=== PATIENT | male | born 1995 | race Caucasian/White ===

== ENCOUNTER 2017-03-05 01:03 | Observation (INO) | payer OTHER ==
[~2017-03-05] VITALS: Ht 180.3 cm; Wt 83.8 kg
[2017-03-05] MEDS ORDERED: BUPR150T3 PO (01:19)
[2017-03-05] MEDS ORDERED: CELE10TA PO (01:19)
[2017-03-05 01:40] LABS: MEAN CORPUSCULAR HEMOGLOBIN 32.2 pg (27.0-33.0); MEAN CORPUSCULAR HGB CONC 35.2 g/dl (32.0-36.5); MEAN CORPUSCULAR VOLUME 91.7 fl (80.0-96.0); WHITE BLOOD COUNT 5.9 K/mm3 (4.0-10.0)
[2017-03-05 01:56] LABS: METHADONE URINE NEGATIVE (NEGATIVE)
[2017-03-05 02:01] LABS: ALBUMIN/GLOBULIN RATIO 1.18 (1.00-1.93); ALKALINE PHOSPHATASE 86 U/L (45-117); ALT/SGPT 41 U/L (12-78); ANION GAP 7 MEQ/L (8-16); AST/SGOT 42 U/L (15-37); BILIRUBIN,DIRECT 0.2 MG/DL (0.0-0.2); BILIRUBIN,TOTAL 0.8 MG/DL (0.2-1.0); BLOOD UREA NITROGEN 15 MG/DL (7-18); CALCIUM LEVEL 8.8 MG/DL (8.5-10.1); CARBON DIOXIDE LEVEL 25 MEQ/L (21-32); CHLORIDE LEVEL 106 MEQ/L (98-107); CREATININE FOR GFR 0.94 MG/DL (0.70-1.30); GLUCOSE, FASTING 88 MG/DL (70-105); POTASSIUM SERUM 4.4 MEQ/L (3.5-5.1); SODIUM LEVEL 138 MEQ/L (136-145); TOTAL PROTEIN 7.4 GM/DL (6.4-8.2)
[2017-03-05] MEDS ORDERED: CHARCOAL ACTIVATED LIQUID 25 GM/120 ML BTL PO ONE (04:00)
[2017-03-05] MEDS ORDERED: NS 1,000 ML IV ONE (07:30)
--- NOTE | 2017-03-05 08:45 | HPEPDOC ---
Medical History and Physical Date of Admission 03/05/2017 History and Physical Primary care provider: Nikki Field on [place] Date of Admission: 03/05/2017 CHIEF COMPLAINT: Suicide attempt with overdose of Wellbutrin and citalopram HISTORY OF PRESENT ILLNESS: Mr. Cordero is a 21-year-old male who is brought to the emergency department last night. Apparently he drinks alcohol on a daily basis, despite the fact that he is under age. Last night he was "getting a little bit rowdy" and after he was informed by his peers that they were going to call his commander, he stated that he saw his career being flushed down the drain, therefore he decided to take all the pills he had which was 5 pills of Wellbutrin 150 mg, and 10 pills of citalopram 10 mg. Apparently at that time he did also have a knife, and indicated an intention to end his life. He has never had a suicide attempt in the past. He did not have any intention of harming anyone else. He was subsequently brought to the emergency department where he was given charcoal as well as 1 L bolus of saline. ALLERGIES: No known drug allergies PAST MEDICAL HISTORY: Anxiety and depression PAST SURGICAL HISTORY: None SOCIAL HISTORY: He smokes approximately 5 cigarettes a day, he states that he has been smoking for approximately one year. He states that he drinks on a daily basis, anywhere from a few beers up to a fifth. He denies any other recreational drug use. 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 Otherwise he denies any family history of stroke, cardiac disease, [place], diabetes REVIEW OF SYSTEMS: Constitutional: Patient denies fevers, chills, night sweats, recent weight gain/ loss. HEENT: Patient denies blurred or double vision, transient visual disturbances, postnasal drip, epistaxis, sore throat, difficulty chewing or swallowing food. He does have a headache Cardiovascular: Patient denies chest discomfort/pain, palpitations, exertional dyspnea, orthopnea, edema of the extremities, claudication. Respiratory: Patient denies dyspnea, wheezing, cough, hemoptysis, sputum production. Gastrointestinal: Patient denies nausea, vomiting, diarrhea, constipation, abdominal pain, melena, hematochezia, hematemesis, jaundice. PHYSICAL EXAMINATION: General: Awake, alert, oriented 3. He appears to be in no acute distress at this time HEENT: Head normocephalic atraumatic, pupils equally reactive to light and accommodation, conjunctiva are pink, sclera are nonicteric, but do appear slightly bloodshot, buccal mucosa is pink and moist with no lesions in the oropharynx. Hearing is grossly intact to conversation. He does have a few minor scratches on his neck, he does not know where they came from. Respiratory: Clear to auscultation bilaterally with no wheezes, rales, or rhonchi. Cardiovascular: Regular rate and rhythm, with no rubs, gallops, or murmur. Abdomen: Soft, nontender, nondistended, no hepatosplenomegaly appreciated. Bowel sounds present. Extremities: 2+ pulses in the radial and dorsalis pedis bilaterally. No evidence of clubbing or cyanosis. He does have a few minor scratches on his forearms, however these do not appear to be lacerations. ELECTROCARDIOGRAM: 2 EKGs were performed in the emergency department. They show sinus rhythm, normal rate, and a corrected QTC of 399 and 401 respectively. ASSESSMENT: 1. Intentional overdose of Wellbutrin and citalopram with suicidal ideations 2. Alcohol abuse and an underage drinking 3. History of anxiety and depression 4. Tobacco use 5. DVT prophylaxis PLAN: Will admit the patient to PCU for cardiac monitoring. Overdose of bupropion and Celexa is associated with seizures, hypertension, tachycardia, arrhythmias, . This was discussed with the patient, he is aware. We will monitor him for at least 24 hours, and once the alcohol is out of his system as well as these drugs, we will consult psychiatry to evaluate him for intentional suicide attempt. As he does use chronic alcohol, I will order a banana bag at this time. He will need a sitter at all times, and we will perform seizure precautions. My preceptor for this patient encounter was physically present in the building during the encounter and was fully available. As needed, all aspects of the patient interview, examination, medical decision making process, and medical care plan development were reviewed and approved by the preceptor. Preceptor is aware and concurs with the plan as stated in the body of this note and will attest to such by his/her cosignature. Vital Signs Vital Signs Date Time Temp Pulse Resp B/P Pulse Ox O2 Delivery O2 Flow Rate FiO2 03/05/17 05:31 98.1 20 03/05/17 05:24 124/69 03/05/17 05:09 68 95 03/05/17 01:11 Room Air Laboratory Data Labs 24H Laboratory Tests 2 03/05/17 01:14: Acetaminophen Level < 2.0L, Aspartate Amino Transf (AST/SGOT) 42H, Alanine Aminotransferase (ALT/SGPT) 41, Alkaline Phosphatase 86, Total Bilirubin 0.8, Direct Bilirubin 0.2, Albumin 4.0, Albumin/Globulin Ratio 1.18, Anion Gap 7L, Calcium Level 8.8, Ethyl Alcohol Level 0.159H, Salicylates Level < 1.7L, Thyroid Stimulating Hormone (TSH) 2.330, Total Protein 7.4 03/05/17 01:25: Urine Amphetamines Screen NEGATIVE, Urine Benzodiazepines Screen NEGATIVE, Urine Opiates Screen NEGATIVE, Urine Barbiturates Screen NEGATIVE, Urine Cannabinoids Screen NEGATIVE, Urine Cocaine Metabolite Screen NEGATIVE, Urine Methadone Screen NEGATIVE, Urine Phencyclidine Screen NEGATIVE CBC/BMP Laboratory Tests 03/05/17 01:14 Red Blood Count 4.95, Mean Corpuscular Volume 91.7, Mean Corpuscular Hemoglobin 32.2, Mean Corpuscular Hemoglobin Concent 35.2, Red Cell Distribution Width 12.0 Home Medications Scheduled Bupropion Hcl (Bupropion HCl Xl) 150 Mg Tab 150 MG PO DAILY Citalopram Hydrobromide (Celexa) 10 Mg Tab 10 MG PO DAILY Allergies Coded Allergies: No Known Allergies (Unverified , 03/05/17) TEJAS KELLER DO Mar 05, 2017 08:45 AR ARUAJO DO Mar 05, 2017 16:15
[2017-03-05] MEDS ORDERED: MULTIVITAMIN -ADULT INJECTION 10 ML, THIAMINE INJection 100 MG, FOLIC ACID 1 MG in NS 1... IV ONE (10:00)
[2017-03-05 23:21] VITALS: BP 133/69
[2017-03-06] VITALS: BP 129/69
[2017-03-06 04:45] VITALS: BP 134/80
[2017-03-06 07:33] LABS: ANION GAP 7 MEQ/L (8-16); BLOOD UREA NITROGEN 13 MG/DL (7-18); CALCIUM LEVEL 8.7 MG/DL (8.5-10.1); CARBON DIOXIDE LEVEL 27 MEQ/L (21-32); CHLORIDE LEVEL 106 MEQ/L (98-107); CREATININE FOR GFR 0.93 MG/DL (0.70-1.30); GLUCOSE, FASTING 90 MG/DL (70-105); POTASSIUM SERUM 4.4 MEQ/L (3.5-5.1); SODIUM LEVEL 140 MEQ/L (136-145)
[2017-03-06 08:00] VITALS: BP 147/73
--- NOTE | 2017-03-06 11:12 | DS.PDOC ---
Discharge Summary General Date of Admission Mar 05, 2017 at 08:11 Date of Discharge 03/06/2017 Discharge Summary PRIMARY CARE PHYSICIAN: Nikki Field on [place] ATTENDING AT TIME OF DISCHARGE: Dr. Araujo DISCHARGE DIAGNOS(E)S: 1. Intentional overdose of bupropion and SSRI citalopram with suicidal ideations 2. Alcohol abuse (underage) 3. Tobacco abuse 4. 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 Feeling as though he was flushing his career down the drain he decided to take all the pills he had which was 5 pills of Wellbutrin and 10 pills of citalopram. There is also some mention that he had a knife and was expressing suicidal ideations. He was subsequently brought to the emergency department. He has been on telemetry for over 24 hours with no events. No QT prolongation. He has not demonstrated any ill effects of SSRI overdose, and he does appear to be medically stable at this time. He was seen and evaluated by psychiatry who feels that he would benefit from inpatient psychiatric therapy, therefore he will be transferred to the [facility] at [facility]. PHYSICAL EXAMINATION ON DISCHARGE: GENERAL: Reclined in bed. He is awake, alert, oriented 3. He is in no acute distress CARDIOVASCULAR EXAMINATION: Regular rate and rhythm, with no rubs, gallops, or murmur. RESPIRATORY EXAMINATION: Clear to auscultation bilaterally with no wheezes, rales, or rhonchi. ABDOMINAL EXAMINATION: Soft, nontender, nondistended. Bowel sounds present. EXTREMITIES: No clubbing or edema noted. 2+ pulses in the radial bilaterally. DISPOSITION: To inpatient mental health unit (IM) at [facility] DISCHARGE INSTRUCTIONS: Follow-up with Dr. Pineda of psychiatry upon admission to [facility]. Diet as tolerated. Activity as tolerated. DISCHARGE MEDICATIONS: His only home medications were: Wellbutrin 150 mg daily citalopram 10 mg daily I will leave this to the discretion of the psychiatric physician at [facility] if they wish to continue this upon his admission to that unit. My preceptor for this patient encounter was physically present in the building during the encounter and was fully available. As needed, all aspects of the patient interview, examination, medical decision making process, and medical care plan development were reviewed and approved by the preceptor. Preceptor is aware and concurs with the plan as stated in the body of this note and will attest to such by his/her cosignature. Attending note: patient seen and evaluated independently. Discuss the treatment and hospital course with resident and I agree with the above treatment plan. Vital Signs/I&Os Vital Signs Date Time Temp Pulse Resp B/P Pulse Ox O2 Delivery O2 Flow Rate FiO2 03/06/17 08:00 98.7 64 16 147/73 97 Room Air Laboratory Data Labs 24H Laboratory Tests 2 03/06/17 06:52: Anion Gap 7L, Blood Urea Nitrogen 13, Creatinine 0.93, Sodium Level 140, Potassium Level 4.4, Chloride Level 106, Carbon Dioxide Level 27, Calcium Level 8.7, Ethyl Alcohol Level < 0.003 Discharge Medications No Active Prescriptions or Reported Meds Allergies Coded Allergies: No Known Allergies (Unverified , 03/05/17) TEJAS KELLER DO Mar 06, 2017 11:12 AR ARAUJO DO Mar 06, 2017 11:25
[2017-03-06 11:31] VITALS: BP 138/83
[2017-03-06] MEDS ORDERED: CELE10TA PO (13:00)
[2017-03-06] MEDS ORDERED: BUPR150T3 PO (13:00)
--- NOTE | 2017-03-06 13:47 | ECGEPIP ---
Stationary ECG Study [facility] Test Date: 2017-03-05 Pat Name: ANGELITA BHAGAT Department: Room: [place] [address] Gender: M Freelance Displayer: ofelia : 1995 Requested By: MATTHIAS WEINSTEIN Order Number: [id number] Reading MD: Javon Gutierrez Measurements Intervals [place] Rate: 64 P: 71 [place]: 169 QRS: 77 QRSD: 105 T: 64 QT: 384 QTc: 399 Interpretive Statements SINUS RHYTHM NONSPECIFIC T-WAVE ABNORMALITY No prior ECG available for comparison at the time of interpretation. Electronically Signed On 03-06-2017 13:46:57 EDT by Javon Gutierrez
--- NOTE | 2017-03-06 13:50 | ECGEPIP ---
Stationary ECG Study [facility] Test Date: 2017-03-06 Pat Name: ANGELITA BHAGAT Department: Room: [place] [address] Gender: M Referral Specialist: XIMENA : 1995 Requested By: MATTHIAS WEINSTEIN Order Number: [id number] Reading MD: Javon Gutierrez Measurements Intervals [place] Rate: 77 P: 73 [place]: 132 QRS: 75 QRSD: 104 T: 58 QT: 374 QTc: 425 Interpretive Statements SINUS RHYTHM Early repolarization. Electronically Signed On 03-06-2017 13:50:01 EDT by Javon Gutierrez
--- NOTE | 2017-03-06 21:33 | CR ---
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 He was caught in the [employer] drinking, and he is considered an underage drinker, and he is now concerned he has "flushed his career down the drain." Because of his concerns and his history of panicking when things go wrong, he overdosed on five Wellbutrin 150 mg and 10 citalopram 10 mg. ALLERGY HISTORY: Negative. PAST HISTORY: He has been treated at [facility] [place] for anxiety and depression. SURGICAL HISTORY: Negative. He comes from [place]. He has a high school education. He serves in the [employer]. 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 He states, "I knew I would get in trouble. 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 I'll be on Medicaid. I'll be making minimum wage. My family won't talk to me." NEUROLOGICAL HISTORY: Negative. DRUG HISTORY: Negative. Patient states he was drinking in the [employer] a bottle of wine as well as 40 ounces of beer, and he has done it many times before, too many to count. He has been drinking since the age of 18. LEGAL HISTORY: Positive for a past history of misdemeanor for vandalism. He is presently single. His family is on [place]. He has no history of sexual abuse. He states he has had panic attacks since age 17, and they occur when things do not go well. He says when he panics and assumes the worst. He cannot control himself. He thinks of worst-case scenarios. MENTAL STATUS: He is presently stating he is "sometimes paranoid." He denies hallucinations, delusions, obsessions, compulsions, and phobias. 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 He does not know the Celexa dose. IMPRESSION: 1. Major depressive illness. 2. Alcohol abuse. RECOMMENDATIONS: Transfer to mental health unit.
--- NOTE | 2017-03-07 08:44 | ECGEPIP ---
Stationary ECG Study [facility] - ED Test Date: 2017-03-05 Pat Name: ANGELITA BHAGAT Department: Room: - Gender: M Trim Technician: : 1995 Requested By: IKER LEDEZMA Order Number: [id number] Reading MD: Kyrie Millan Measurements Intervals [place] Rate: 75 P: 70 [place]: 165 QRS: 71 QRSD: 110 T: 45 QT: 373 QTc: 418 Interpretive Statements SIN[address] RHYTHM ST ELEVATION, PROBABLY EARLY REPOLARIZATION NO PRIOR Electronically Signed On 03-07-2017 8:44:03 EDT by Kyrie Millan
--- NOTE | 2017-03-07 08:45 | ECGEPIP ---
Stationary ECG Study [facility] - ED Test Date: 2017-03-05 Pat Name: ANGELITA BHAGAT Department: Room: - Gender: M Brushing Operator: : 1995 Requested By: IKER LEDEZMA Order Number: [id number] Reading MD: Kyrie Millan Measurements Intervals [place] Rate: 77 P: 67 [place]: 158 QRS: 71 QRSD: 108 T: 55 QT: 368 QTc: 416 Interpretive Statements SINUS RHYTHM DIFFUSE ST ELEVATION ,PROBABLY EARLY REPOLARIZAITON 03/05/17 1:20 RATE INCREASED SIMILAR MORPHOLOGY Electronically Signed On 03-07-2017 8:45:16 EDT by Kyrie Millan
== END 2017-03-06 12:14 ==
LOC: EDBD 01:03 → M ED 02:45 → M ED INP 08:11
PROVIDERS: ADMIT Hospitalist; ATTEND Hospitalist
DX: T50.902A Poisoning by unspecified drugs, medicaments and biological substances, intentional self-harm, initial encounter (principal); T43.012A Poisoning by tricyclic antidepressants, intentional self-harm, initial encounter; F10.10 Alcohol abuse, uncomplicated; F17.210 Nicotine dependence, cigarettes, uncomplicated; F41.9 Anxiety disorder, unspecified; F32.9 Major depressive disorder, single episode, unspecified; Z79.899 Other long term (current) drug therapy
CPT/HCPCS: 36415; 80048; 80076; 80306; 84443; 85027; 93005; 93041; 99285; G0480; J3411

== ENCOUNTER 2017-03-06 12:15 | Inpatient (IN) | payer OTHER ==
[~2017-03-06] VITALS: Ht 180.3 cm; Wt 83.3 kg
[~2017-03-06 12:15] MED LIST: BUPR150T3 PO; CELE10TA PO
[2017-03-06] MEDS ORDERED: BUPR150T3 PO (13:00)
[2017-03-06] MEDS ORDERED: CELE10TA PO (13:00)
[2017-03-06 13:01] VITALS: BP 144/82
[2017-03-06] MEDS ORDERED: MOM 30ML SUSPENSION UDC PO PRN (14:15)
[2017-03-06] MEDS ORDERED: ACETAMINOPHEN TAB 650MG DOSE (2X325MG) PO PRN (14:15)
[2017-03-06] MEDS ORDERED: MAALOX 30 ML SUSP *UDC PO PRN (14:15)
[2017-03-07 07:00] VITALS: BP 130/77
[2017-03-07] MEDS: buPROPion **XL** TABLET 150MG (WELLBUTRIN XL) PO SCH (09:23)
[2017-03-07] MEDS: CitaloPRAM (CeleXA) 20 MG TAB PO SCH (09:23)
[2017-03-07 18:00] VITALS: BP 131/70
--- NOTE | 2017-03-08 06:34 | HPE ---
DATE OF ADMISSION: 03/07/2017 Mr. Cordero is a 21-year-old male according to the emergency room and progressive care unit (PCU) note. 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 There was some mention that he had a knife and was expressing suicidal ideation. He was brought to the emergency department. He was on telemetry for 24 hours with no events, no QT prolongation and has not demonstrated any ill affects of selective serotonin reuptake inhibitor (SSRI) overdose. He appears to be medically stable at the time and was evaluated as to the benefits for inpatient psychiatric treatment. This 21-year-old male drinks alcohol daily. He was caught in the [employer] drinking and was concerned about his career being flushed down the toilet. He overdosed on Wellbutrin and citalopram. ALLERGIES: He has no history of allergies. PAST HISTORY: Past psychiatric issues are that he has been diagnosed with anxiety and depression. PAST SURGICAL HISTORY: Negative. The patient is from [place]. He has a high school education. He has been serving in the [employer] and says "he is indifferent to the [employer]." He states he knew he would get in trouble, he knew he would get kicked out of the [employer], he is panicked that he will not get a job, will be doing minimum wage and that his family will not talk to him. For that reason he swallowed his pills and wanted to . NEUROLOGIC HISTORY: Negative. DRUG HISTORY: Negative. The patient states he was drinking a bottle of [place], and also drinks 40 ounces of beer. Since he is an underage drinker, he is not allowed to drink in the [place]. He states he has drank in the [place] so many times that it is too many to count. He has been drinking since age 18. His legal history is positive for a misdemeanor in the past of vandalism. He has no history of sexual or emotional abuse. His family lives in [place]. He states he has had panic attacks since he was age 17. He describes that when he gets in trouble he "assumes the worse, cannot control his thoughts, thinks of worse case scenarios." MENTAL STATUS EXAMINATION: He is presently denying hallucinations, delusions, obsessions, compulsions, and phobias although he says he is 'sometimes paranoid." He has been treated, his psychiatric treatment has been at behavioral health. He has been treated with antidepressants of Wellbutrin and Celexa. DIAGNOSES: 1. Major depressive illness. 2. Panic attacks. 3. Alcohol dependence. PLAN: Observation, further information and recommendation for alcohol rehabilitation.
[2017-03-08 06:43] VITALS: BP 128/64
[2017-03-08] MEDS: buPROPion **XL** TABLET 150MG (WELLBUTRIN XL) PO SCH (09:14)
[2017-03-08] MEDS: CitaloPRAM (CeleXA) 20 MG TAB PO SCH (09:14)
--- NOTE | 2017-03-08 11:04 | IPNPDOC ---
[facility] Progress Note Progress Note DATE OF SERVICE: 03/08/17 HISTORY: Day 3 of admission. Pt admitted after drinking in his barracks at [facility] and creating a disturbance. He was told he would be reported and he took an overdose of his SSRI medication, wellbutrin and Celexa. He was observed in the ED. EKG done. Pt did not show any QT prolongation and he was admitted to [facility]. He was interviewed by commercial underwriter in his room. VITAL SIGNS: See below. NEW TEST RESULTS: na CURRENT MEDICATIONS: See below. 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. He is underage and drinking in his barracks. He gets intoxicated daily. Speech: Is coherent, fluent Language skills are good Thought processes includes: goal directed, logical Thought content: appropropriate, Abstract reasoning, and computation: good Description of associations: good. Description of abnormal or psychotic thoughts: denies SI, denies perceptual disturbance, no obsessions or compulsions, no delusions or FLETCHER. Judgment: poor when it comes to drinking Insight: good, indicates an awareness and desire to stop abusing alcohol. Orientation: well oriented in all spheres. Recent and remote memory: intact Attention span and concentration: adequate, h/o ADHD tx in school for many years. Fund of knowledge: good Mood: "okay" Affect: congruent DIAGNOSES: 1. Generalized anxiety disorder 2. Alcohol dependence 3. depressive disorder 4. ADHD by history ASSESSMENT:Pt denies parents use or abuse alcohol. 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 He drinks about 7 drinks a day. 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 He has never overdosed on his medication before. He is prescribed wellbutrin and citalopram by the [email or web address] [place] He does not feel the medication have done all that much for him. He admits to having anxiety and worrying " about everything". This has been true for him for the past 2 years or so. He has never received education in stress mgt or stress reduction. He denies any specific triggers and uses alcohol for calming. He says a friend has signed him up for [facility] [place] and adds, "I probably need it". Pt is motivated and willing to get help with his drinking. As an outpatient it is recommended he be weaned off the antidepressants since he does not report any benefit. CBT/relaxation, meditation and other skills for reducing anxiety should be paramount in his treatment. He may benefit from prn vistaril and campral once he leaves the unit. MANAGEMENT PLAN: continue to observe. obtain collateral from family and base . TIME SPENT: 45 minutes. Vital Signs Vital Signs Date Time Temp Pulse Resp B/P Pulse Ox O2 Delivery O2 Flow Rate FiO2 03/08/17 06:43 97.7 63 14 128/64 03/06/17 13:01 96 Room Air Current Medications Current Medications Acetaminophen (Tylenol Tab) 650 mg Q6HP PRN PO HEADACHE or DISCOMFORT; Start at 14:15; Stop 04/05/17 at 14:14 Al Hydrox/Mg Hydrox/Simethicone (Mylanta) 30 ml Q4HP PRN PO HEARTBURN/ INDIGESTION; Start 03/06/17 at 14:15; Stop 04/05/17 at 14:14 Bupropion HCl (Wellbutrin Xl) 150 mg DAILY PO Last administered on 03/08/17 09 :14; Start 03/07/17 at 09:00; Stop 04/06/17 at 08:59 Citalopram Hydrobromide (CeleXA) 20 mg DAILY PO Last administered on 03/08/17 09:14; Start 03/07/17 at 09:00; Stop 04/06/17 at 08:59 Magnesium Hydroxide (Milk Of Magnesia) 30 ml DAILYPRN PRN PO CONSTIPATION; Start 03/06/17 at 14:15; Stop 04/05/17 at 14:14 Trazodone HCl (Desyrel) 50 mg QHSP PRN PO INSOMNIA; Start 03/06/17 at 14:15; Stop 04/05/17 at 14:14 Allergies Coded Allergies: No Known Allergies (Unverified , 03/05/17) Jane Hazel Mar 08, 2017 11:03
[2017-03-08 18:00] VITALS: BP 142/80
[2017-03-09 06:32] VITALS: BP 156/93
--- NOTE | 2017-03-09 07:52 | HPE ---
DATE OF ADMISSION: 03/07/2017 HISTORY OF PRESENT ILLNESS: Please refer to the psychiatric history and evaluation for further details on this admission. This examination and history is intended for medical issues which may need treatment, followup or consultation on this 21-year-old male who was transferred from the progressive care unit (PCU) after having been treated and stabilized, having taken an overdose of Wellbutrin and Celexa. PRIMARY CARE PROVIDER: Jordan Emir [place] ALLERGIES: No known allergies. PAST MEDICAL HISTORY: Anxiety and depression. PAST SURGICAL HISTORY: None. HOME MEDICATIONS: None. SOCIAL HISTORY: He smokes about five cigarettes per day. He drinks on a daily basis, anywhere from a few beers to a fifth. He denies any recreational drug use. 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 REVIEW OF SYSTEMS: Unremarkable, negative. He had no complaints. Ten systems review was unremarkable. Two EKGs were performed in the emergency department. They showed sinus rhythm, normal rate. PHYSICAL EXAMINATION: A 21-year-old cooperative male in no acute distress. Blood pressure 131/70, pulse 62, respirations 16, temperature 98.7. The patient is alert and oriented times three. Pupils are equal and reactive to light. Extraocular movements intact. Cornea and sclera clear. Conjunctiva is normal. No facial asymmetry. Pharynx, tongue and gums pink and moist. Tongue is midline. Neck is supple, without lymphadenopathy. No thyromegaly. No goiter. Chest clear to auscultation, without wheeze or retraction. Heart is regular. Abdomen benign. Bowel sounds positive. Genitourinary ()/Rectal: Not done. Extremities show equal strength. Full range of motion. No cyanosis, clubbing or edema. Peripheral pulses equal and palpable bilaterally. Skin is warm and dry. IMPRESSION AND PLAN: 1. Psychiatric, plan per psychiatry. 2. Monitor for alcohol withdrawal. 3. No acute medical issues.
[2017-03-09] MEDS: CitaloPRAM (CeleXA) 20 MG TAB PO SCH (09:13)
[2017-03-09] MEDS: buPROPion **XL** TABLET 150MG (WELLBUTRIN XL) PO SCH (09:14)
--- NOTE | 2017-03-09 15:07 | IPNPDOC ---
[facility] Progress Note Progress Note DATE OF SERVICE: 03/09/17 HISTORY: day 4 of admission. Pt shows no sign of alcohol withdrawal. Denies tremors, no diaphoresis, VS stable. VITAL SIGNS: See below. NEW TEST RESULTS: seen by PA today. CURRENT MEDICATIONS: See below. MENTAL STATUS EXAMINATION: Patient is a 21-year old male, who is being treated for MAGO, alcohol dependence , depressive disorder and ADHD by history. Speech: Is fluent, spontaneous. Language skills are grossly intact Thought processes: linear, logical and goal directed. Thought content: future oriented Abstract reasoning, and computation:good. Description of associations: good. Description of abnormal or psychotic thoughts: not psychotic or manic. Not suicidal. Judgment: fair Insight: good, Orientation: oriented in all spheres. Recent and remote memory: intact Attention span and concentration: adequate Fund of knowledge: full Mood:sad. Affect: congruent DIAGNOSES: 1. Generalized anxiety disorder 2. depressive disorder 3. alcohol dependence 4. ADHD by history ASSESSMENT: Pt is participating in therapeutic programming and making the most of his time here. He is motivated to eliminate alcohol from his life. He is willing to meet with his commanding officers and find out what consequences there will be due [place] Pt is aware that we are attempting to schedule a meeting with command. Pt feels prepared to face what lies ahead. He feels supported by friends. Pt reports improving mood. Denies desire to takes his own life. Would like to remain in the . MANAGEMENT PLAN: Pt may benefit from prn anxiolytic therapy as an outpatient. A non controlled substance such as hydroxyzine is recommended. He also needs to learn stress reduction techniques to improve his coping with various life stressors. Abstinence from alcohol is strongly recommended. TIME SPENT: 30 minutes. Vital Signs Vital Signs Date Time Temp Pulse Resp B/P Pulse Ox O2 Delivery O2 Flow Rate FiO2 03/09/17 06:32 98.5 62 16 156/93 03/06/17 13:01 96 Room Air Current Medications Current Medications Acetaminophen (Tylenol Tab) 650 mg Q6HP PRN PO HEADACHE or DISCOMFORT; Start at 14:15; Stop 04/05/17 at 14:14 Al Hydrox/Mg Hydrox/Simethicone (Mylanta) 30 ml Q4HP PRN PO HEARTBURN/ INDIGESTION; Start 03/06/17 at 14:15; Stop 04/05/17 at 14:14 Bupropion HCl (Wellbutrin Xl) 150 mg DAILY PO Last administered on 03/09/17 09 :14; Start 03/07/17 at 09:00; Stop 04/06/17 at 08:59 Citalopram Hydrobromide (CeleXA) 20 mg DAILY PO Last administered on 03/09/17 09:13; Start 03/07/17 at 09:00; Stop 04/06/17 at 08:59 Magnesium Hydroxide (Milk Of Magnesia) 30 ml DAILYPRN PRN PO CONSTIPATION; Start 03/06/17 at 14:15; Stop 04/05/17 at 14:14 Trazodone HCl (Desyrel) 50 mg QHSP PRN PO INSOMNIA; Start 03/06/17 at 14:15; Stop 04/05/17 at 14:14 Allergies Coded Allergies: No Known Allergies (Unverified , 03/05/17) Jane Hazel Mar 09, 2017 15:07
[2017-03-09 18:00] VITALS: BP 130/86
[2017-03-09] MEDS: traZODone 50 MG TAB PO PRN (20:23)
[2017-03-10 06:17] VITALS: BP 112/72
[2017-03-10] MEDS: CitaloPRAM (CeleXA) 20 MG TAB PO SCH (08:56)
[2017-03-10] MEDS: buPROPion **XL** TABLET 150MG (WELLBUTRIN XL) PO SCH (08:56)
[2017-03-10] MEDS ORDERED: hydrOXYzine 50 MG TAB PO STA (12:10)
[2017-03-10] MEDS ORDERED: hydrOXYzine 25 MG TAB PO PRN (12:15)
--- NOTE | 2017-03-10 12:40 | IPNPDOC ---
[facility] Progress Note Progress Note DATE OF SERVICE: 03/10/17 HISTORY: Day 5 of admission. Meeting with TARYN. VITAL SIGNS: See below. NEW TEST RESULTS: na CURRENT MEDICATIONS: See below. MENTAL STATUS EXAMINATION: Patient is a 21-year old male, who is dx with MDD and alcohol dependence. Speech: Is clear, spontaneous Language skills are grossly intact Thought processes including: goal directed Thought content: upset with recommendation by his 1st Sgt, not to retain him in the [employer], seeking options. Abstract reasoning, and computation: good. Description of associations: good. Description of abnormal or psychotic thoughts: pt agitated that meeting with TARYN did not go the way he wanted it to but he is not having any psychotic symptoms or suicidal thoughts. Judgment:fair Insight: fair. Orientation: oriented in all spheres. Recent and remote memory: intact. Attention span and concentration: poor, preoccupied Fund of knowledge: good Mood: "agitated". Affect: upset DIAGNOSES: 1. MDD 2. Alcohol dependence 3. ADHD by history ASSESSMENT:Pt believes that most things he attempts to accomplish in life have poor outcomes. He was kicked out of High School. He did not apply himself at college. He is facing disciplinary action and possible expulsion from the [employer]. He wants to explore options. He is in control of his actions. He would benefit from positive input from others and needs encouragement to persevere. He feels like giving up right now. He denies suicidal or homicidal thoughts. After the meeting with [facility] personnel, Mr. Cordero called and talked to his mother. He expressed to her "I don't know if I can go on". MANAGEMENT PLAN: Pt was offered and accepted Vistaril 50 mg po stat for calming. PRN vistaril is ordered for him q 6 hours if necessary. Pt stated he does seem to feel anger more intensely since being on wellbutrin. Wellbutrin discontinued. Celexa raised to 40 mg starting tomorrow. Pt was enc to contact his best friend in [place] to talk about what happened. Also was encouraged to contact his family. Nursing staff made aware that pt made the comment "no one better touch me" and will assess his response to the vistaril. When last observed on the unit, pt was in bed resting with eyes closed. He appeared to be sleeping. The Liaison from [employer] also visited with Mr. Cordero on the unit to encourage him. TIME SPENT: 60 minutes. Vital Signs Vital Signs Date Time Temp Pulse Resp B/P Pulse Ox O2 Delivery O2 Flow Rate FiO2 03/10/17 06:17 97.5 66 20 112/72 03/06/17 13:01 96 Room Air Current Medications Current Medications Acetaminophen (Tylenol Tab) 650 mg Q6HP PRN PO HEADACHE or DISCOMFORT; Start at 14:15; Stop 04/05/17 at 14:14 Al Hydrox/Mg Hydrox/Simethicone (Mylanta) 30 ml Q4HP PRN PO HEARTBURN/ INDIGESTION; Start 03/06/17 at 14:15; Stop 04/05/17 at 14:14 Bupropion HCl (Wellbutrin Xl) 150 mg DAILY PO Last administered on 03/10/17 08 :56; Start 03/07/17 at 09:00; Stop 03/10/17 at 12:11; Status DC Citalopram Hydrobromide (CeleXA) 20 mg DAILY PO Last administered on 03/10/17 08:56; Start 03/07/17 at 09:00; Stop 03/10/17 at 12:11; Status DC Citalopram Hydrobromide (CeleXA) 40 mg DAILY PO ; Start 03/11/17 at 09:00; Stop 04/10/17 at 08:59 Hydroxyzine HCl (Atarax) 25 mg Q6HP PRN PO ANXIETY; Start 03/10/17 at 12:15; Stop 04/09/17 at 12:14 Hydroxyzine HCl (Atarax) 50 mg Q6HP PRN PO ANXIETY; Start 03/10/17 at 12:15; Stop 04/09/17 at 12:14 Magnesium Hydroxide (Milk Of Magnesia) 30 ml DAILYPRN PRN PO CONSTIPATION; Start 03/06/17 at 14:15; Stop 04/05/17 at 14:14 Trazodone HCl (Desyrel) 50 mg QHSP PRN PO INSOMNIA Last administered on 20:23; Start 03/06/17 at 14:15; Stop 04/05/17 at 14:14 Allergies Coded Allergies: No Known Allergies (Unverified , 03/05/17) Jane Hazel Mar 10, 2017 12:40
[2017-03-10 18:00] VITALS: BP 119/56
[2017-03-10] MEDS: traZODone 50 MG TAB PO PRN (21:40)
[2017-03-11 06:25] VITALS: BP 118/66
[2017-03-11] MEDS: CitaloPRAM (CeleXA) 20 MG TAB PO SCH (08:20)
[2017-03-11] MEDS: hydrOXYzine 50 MG TAB PO PRN (08:21)
--- NOTE | 2017-03-11 11:26 | IPNPDOC ---
[facility] Progress Note Progress Note DATE OF SERVICE: 03/11/17 HISTORY: Day 6 of admission VITAL SIGNS: See below. NEW TEST RESULTS: na CURRENT MEDICATIONS: See below. MENTAL STATUS EXAMINATION: Patient is a 21-year old male, who is dx with major depression and MAGO. Pt has been in his room much of the morning but will attend groups now. Pt is wearing hospital clothing and interviewed in his room. No roommate present. Speech: Is clear, fluent, spontaneous Language skills are intact Thought processes : linear, goal directed. Thought content: "I don't know". Pt is worried about his future. Abstract reasoning, and computation: good. Description of associations: good Description of abnormal or psychotic thoughts: Denies active thoughts of suicide or homicide. Denies aud/vis hallucinations. No delusions or obsessions noted. Judgment: fair Insight: fair. Orientation: oriented in all spheres. Recent and remote memory: intact Attention span and concentration: short/distracted Fund of knowledge: full Mood: depressed. Affect: congruent. DIAGNOSES: 1. MDD 2. MAGO 3. Alcohol dependence. ASSESSMENT:Pt did not experience any symptoms of alcohol withdrawal while on the unit. He has been pleasant and sociable. He is upset with the decision by his immediate supervisors on the [place] to recommend he be expelled/dishonorably discharged from the service. He is dwelling on this. He minimizes the encouragement offered by the [employer] liaison and this blog writer thinking this is the end of his career. He states the vistaril makes him tired but he did not want the dose decreased. He said he slept well last night with the medication. MANAGEMENT PLAN: Francisco needs ongoing treatment as he reportedly told his mother yesterday after the meeting with [facility] that he did not know if he could go on. His celexa was increased thi sweek and this will take time to take effect. 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 TIME SPENT: 35 minutes. Vital Signs Vital Signs Date Time Temp Pulse Resp B/P Pulse Ox O2 Delivery O2 Flow Rate FiO2 03/11/17 06:25 98.5 64 18 118/66 03/06/17 13:01 96 Room Air Current Medications Current Medications Acetaminophen (Tylenol Tab) 650 mg Q6HP PRN PO HEADACHE or DISCOMFORT; Start at 14:15; Stop 04/05/17 at 14:14 Al Hydrox/Mg Hydrox/Simethicone (Mylanta) 30 ml Q4HP PRN PO HEARTBURN/ INDIGESTION; Start 03/06/17 at 14:15; Stop 04/05/17 at 14:14 Bupropion HCl (Wellbutrin Xl) 150 mg DAILY PO Last administered on 03/10/17 08 :56; Start 03/07/17 at 09:00; Stop 03/10/17 at 12:11; Status DC Citalopram Hydrobromide (CeleXA) 20 mg DAILY PO Last administered on 03/10/17 08:56; Start 03/07/17 at 09:00; Stop 03/10/17 at 12:11; Status DC Citalopram Hydrobromide (CeleXA) 40 mg DAILY PO Last administered on 03/11/17 08:20; Start 03/11/17 at 09:00; Stop 04/10/17 at 08:59 Hydroxyzine HCl (Atarax) 25 mg Q6HP PRN PO ANXIETY; Start 03/10/17 at 12:15; Stop 04/09/17 at 12:14; Status Cancel Hydroxyzine HCl (Atarax) 50 mg Q6HP PRN PO ANXIETY Last administered on 08:21; Start 03/10/17 at 12:15; Stop 04/09/17 at 12:14 Magnesium Hydroxide (Milk Of Magnesia) 30 ml DAILYPRN PRN PO CONSTIPATION; Start 03/06/17 at 14:15; Stop 04/05/17 at 14:14 Trazodone HCl (Desyrel) 50 mg QHSP PRN PO INSOMNIA Last administered on 21:40; Start 03/06/17 at 14:15; Stop 04/05/17 at 14:14 Allergies Coded Allergies: No Known Allergies (Unverified , 03/05/17) Jane Hazel Mar 11, 2017 11:26
[2017-03-11 18:00] VITALS: BP 132/71
[2017-03-11] MEDS: traZODone 50 MG TAB PO PRN (22:05)
[2017-03-12 06:00] VITALS: BP 132/78
[2017-03-12] MEDS: CitaloPRAM (CeleXA) 20 MG TAB PO SCH (08:34)
--- NOTE | 2017-03-12 10:43 | IPNPDOC ---
[facility] Progress Note Progress Note DATE OF SERVICE: 03/12/17 HISTORY: Day 7 of admission VITAL SIGNS: See below. NEW TEST RESULTS:NA. CURRENT MEDICATIONS: See below. MENTAL STATUS EXAMINATION: Patient is a 21-year old male, who is dx with MDD, severe and alcohol dependence. He continues to perseverate about his situation with the [employer]. He does not want to be discharged from service. Speech: Is fluent, spontaneous. Language skills are good, grossly intact Thought processes including: linear and goal directed. Thought content: future oriented. Abstract reasoning, and computation: average. Description of associations: good Description of abnormal or psychotic thoughts: continues to deny thoughts of suicide and perceptual disturbances. Judgment: fair. Insight: good Orientation: well oriented in all spheres. Recent and remote memory: grossly intact Attention span and concentration: adequate Fund of knowledge: full Mood:"sad and depressed.Anxious". Affect: congruent. DIAGNOSES: 1. MDD, severe, recurrent 2. alcohol dependent ASSESSMENT:Pt was more talkative today. He is thinking about what happened that got him into this current situation. He states he is determined to "stay strong and work hard" to prove he belongs in the . He is very interested in his work in the [employer]. He appears committed to abstaining from alcohol. 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 Pt was interrupted during the night by another patient's screaming. It caused him to feel anger but he controlled himself. Pt is tolerating the increase in celexa without side effects. He requested as increase in trazodone which was ordered for him. Side effects explained. Pt denies increasing anxiety. Anxiety remains moderate to high at times when agitated. Pt is using atarax prn. States it doesn't do much. MANAGEMENT PLAN: Increase trazodone to 100 mg at hs for middle of the night awakening. Continue Celexa. Pt was much more visible in milieu today. Interacting appropriately with peers and attending therapeutic groups. Observed smiling at times. We will discuss discharge Wednesday with the intent of discharge occurring sometime next week if he feels safe to leave. TIME SPENT: 35 minutes. Vital Signs Vital Signs Date Time Temp Pulse Resp B/P Pulse Ox O2 Delivery O2 Flow Rate FiO2 03/12/17 06:00 98.2 68 22 132/78 4/15/17 13:01 96 Room Air Current Medications Current Medications Acetaminophen (Tylenol Tab) 650 mg Q6HP PRN PO HEADACHE or DISCOMFORT; Start at 14:15; Stop 04/05/17 at 14:14 Al Hydrox/Mg Hydrox/Simethicone (Mylanta) 30 ml Q4HP PRN PO HEARTBURN/ INDIGESTION; Start 03/06/17 at 14:15; Stop 04/05/17 at 14:14 Bupropion HCl (Wellbutrin Xl) 150 mg DAILY PO Last administered on 03/10/17 08 :56; Start 03/07/17 at 09:00; Stop 03/10/17 at 12:11; Status DC Citalopram Hydrobromide (CeleXA) 20 mg DAILY PO Last administered on 03/10/17 08:56; Start 03/07/17 at 09:00; Stop 03/10/17 at 12:11; Status DC Citalopram Hydrobromide (CeleXA) 40 mg DAILY PO Last administered on 03/12/17 08:34; Start 03/11/17 at 09:00; Stop 04/10/17 at 08:59 Hydroxyzine HCl (Atarax) 25 mg Q6HP PRN PO ANXIETY; Start 03/10/17 at 12:15; Stop 04/09/17 at 12:14; Status Cancel Hydroxyzine HCl (Atarax) 50 mg Q6HP PRN PO ANXIETY Last administered on 08:21; Start 03/10/17 at 12:15; Stop 04/09/17 at 12:14 Magnesium Hydroxide (Milk Of Magnesia) 30 ml DAILYPRN PRN PO CONSTIPATION; Start 03/06/17 at 14:15; Stop 04/05/17 at 14:14 Trazodone HCl (Desyrel) 50 mg QHSP PRN PO INSOMNIA Last administered on 22:05; Start 03/06/17 at 14:15; Stop 04/05/17 at 14:14 Allergies Coded Allergies: No Known Allergies (Unverified , 03/05/17) Jane Hazel Mar 12, 2017 10:43
[2017-03-12] MEDS: hydrOXYzine 50 MG TAB PO PRN (14:34)
[2017-03-12 18:00] VITALS: BP 140/59
[2017-03-12] MEDS: traZODone 100 MG TAB PO PRN (23:14)
[2017-03-13 06:19] VITALS: BP 113/68
[2017-03-13] MEDS: CitaloPRAM (CeleXA) 20 MG TAB PO SCH (09:03)
[2017-03-13 18:00] VITALS: BP 120/88
[2017-03-13] MEDS: hydrOXYzine 50 MG TAB PO PRN (19:40)
[2017-03-13] MEDS: traZODone 100 MG TAB PO PRN (23:56)
[2017-03-14 06:58] VITALS: BP 126/84
[2017-03-14] MEDS: CitaloPRAM (CeleXA) 20 MG TAB PO SCH (08:54)
[2017-03-14 18:00] VITALS: BP 138/72
[2017-03-14] MEDS: traZODone 100 MG TAB PO PRN (23:08)
[2017-03-15 07:00] VITALS: BP 129/57
[2017-03-15] MEDS: CitaloPRAM (CeleXA) 20 MG TAB PO SCH (09:01)
--- NOTE | 2017-03-15 10:24 | IPNPDOC ---
[facility] Progress Note Progress Note DATE OF SERVICE: 03/15/17 HISTORY: Day 10 of admission VITAL SIGNS: See below. NEW TEST RESULTS: na CURRENT MEDICATIONS: See below. MENTAL STATUS EXAMINATION: Patient is a 21-year old male, who is an [employer] [place], admitted here after he deliberately overdosed on his medication of Celexa and wellbutrin after an argument with his command. He had been drinking in the [place] after being warned not to. Speech: Is spontaneous, clear, soft & low tone of voice, Language skills are grossly intact Thought processes : goal directed Thought content: appropriate Abstract reasoning, and computation: good . Description of associations: good. Description of abnormal or psychotic thoughts: Pt continues to deny suicidal thoughts and homicidal thoughts. He denies perceptual disturbances. Judgment: good Insight: good, pt accepts responsibility for his poor decision making. Orientation: well oriented in all spheres Recent and remote memory: intact Attention span and concentration: adequate Fund of knowledge: full Mood: depressed Affect: full range of affect. DIAGNOSES: 1. Major depressive disorder, severe, recurrent without psychotic features. 2. Alcohol dependence in remission 3. Insomnia. ASSESSMENT:Pt gave permission to notify command that he would like to leave on Wednesday this week. He is demonstrating a new spirit to fight any recommendation he be discharged from the . He plans to fight it. This is a positive sign his depression is lifting and he can engage in the activities he will need to be involved in for discharge to occur. He intends to remain sober. We discussed healthy coping patterns versus harming self when upset or disappointed. He plans to attend [facility] and to stop alcohol use. CBT and Motivational therapy are recommended as an outpatient. Insomnia remains an issue. He is prescribed a new sleep aid this evening and we will see if that is helpful for him. Mood is improving, range of affect observed today. Playful at times. Very sociable and visible in the milieu. MANAGEMENT PLAN: continue Celexa, change sleep aid to Rozerem (ramelteon). Discontinue trazodone. Monitor response. TIME SPENT: 30 minutes. Vital Signs Vital Signs Date Time Temp Pulse Resp B/P Pulse Ox O2 Delivery O2 Flow Rate FiO2 03/15/17 07:00 98.1 65 16 129/57 97 Room Air Current Medications Current Medications Acetaminophen (Tylenol Tab) 650 mg Q6HP PRN PO HEADACHE or DISCOMFORT; Start at 14:15; Stop 04/05/17 at 14:14 Al Hydrox/Mg Hydrox/Simethicone (Mylanta) 30 ml Q4HP PRN PO HEARTBURN/ INDIGESTION; Start 03/06/17 at 14:15; Stop 04/05/17 at 14:14 Bupropion HCl (Wellbutrin Xl) 150 mg DAILY PO Last administered on 03/10/17 08 :56; Start 03/07/17 at 09:00; Stop 03/10/17 at 12:11; Status DC Citalopram Hydrobromide (CeleXA) 20 mg DAILY PO Last administered on 03/10/17 08:56; Start 03/07/17 at 09:00; Stop 03/10/17 at 12:11; Status DC Citalopram Hydrobromide (CeleXA) 40 mg DAILY PO Last administered on 03/15/17 09:01; Start 03/11/17 at 09:00; Stop 04/10/17 at 08:59 Hydroxyzine HCl (Atarax) 25 mg Q6HP PRN PO ANXIETY; Start 03/10/17 at 12:15; Stop 04/09/17 at 12:14; Status Cancel Hydroxyzine HCl (Atarax) 50 mg Q6HP PRN PO ANXIETY Last administered on 19:40; Start 03/10/17 at 12:15; Stop 04/09/17 at 12:14 Magnesium Hydroxide (Milk Of Magnesia) 30 ml DAILYPRN PRN PO CONSTIPATION; Start 03/06/17 at 14:15; Stop 04/05/17 at 14:14 Trazodone HCl (Desyrel) 50 mg QHSP PRN PO INSOMNIA Last administered on 22:05; Start 03/06/17 at 14:15; Stop 03/12/17 at 10:33; Status DC Trazodone HCl (Desyrel) 100 mg QHSP PRN PO INSOMNIA Last administered on 23:08; Start 03/12/17 at 10:45; Stop 04/11/17 at 10:44 Allergies Coded Allergies: No Known Allergies (Unverified , 03/05/17) Jane Hazel Mar 15, 2017 10:24
[2017-03-15 18:00] VITALS: BP 126/58
[2017-03-15] MEDS: RAMELTEON 8 MG TAB (ROZEREM) PO SCH (21:23)
[2017-03-15] MEDS: hydrOXYzine 50 MG TAB PO PRN (21:24)
[2017-03-16 06:34] VITALS: BP 121/57
[2017-03-16] MEDS: CitaloPRAM (CeleXA) 20 MG TAB PO SCH (08:48)
[2017-03-16] MEDS: hydrOXYzine 50 MG TAB PO PRN (11:28)
--- NOTE | 2017-03-16 14:27 | IPNPDOC ---
[facility] Progress Note Progress Note DATE OF SERVICE: 03/16/17 HISTORY: Day 11 of admission. Expressed suicidal thinking as he participated in an activity group that had the participants write about their worries. VITAL SIGNS: See below. NEW TEST RESULTS: NA CURRENT MEDICATIONS: See below. MENTAL STATUS EXAMINATION: Patient is a 21-year old male, who is tx fpr MDD and alcohol dependence.. Speech: Is spontaneous Language skills are intact Thought processes: goal directed, logical Thought content: worried about the possibility of being discharge from the [employer] due to his recent infractions. Abstract reasoning, and computation: adequate. Description of associations: good. Description of abnormal or psychotic thoughts: Pt states he worries about suicide once he leaves the safety of this unit. Pt denies suicidal plan on the unit or when he leaves and returns to [facility]. Judgment: fair Insight: fair. Orientation: oriented to person, place, time and situation. Recent and remote memory: intact Attention span and concentration: good. Fund of knowledge: Full Mood: depressed. Affect: angry/tired. DIAGNOSES: 1. MDD, severe 2. Alcohol dependence 3. Insomnia. ASSESSMENT:Pt was about to fall off to sleep last night when he was disturbed by a peer which then kept him awake a bit more than he laquita have liked. The new sleep medication appears to have been a little helpful per Francisco. Will continue to monitor this. Pt feels the increase in Celexa has been helpful. He is a little less anxious per his self-report. The counselor who ran a group this morning voiced concern about pt's project during an activity about worries. On his paper he wrote about getting kicked out of the service and wanting to commit suicide. He denies plan or intent while on the unit. His main concern is what will happen to him when he leaves the confines of the hospital. Pt has lost the fighting spirit he displayed yesterday. MANAGEMENT PLAN: Discussed IOP with pt and alcohol cessation. Discussed continuing medications and keep appts after discharge. Discussed CBT/talk therapy upon discharge. Continue medications, observe for sleep time. Monitor SI and keep pt on close observation. Pt has his command meeting tomorrow. Pt states it is still his intention to fight his discharge. TIME SPENT: 30 minutes. Vital Signs Vital Signs Date Time Temp Pulse Resp B/P Pulse Ox O2 Delivery O2 Flow Rate FiO2 03/16/17 06:34 97.3 65 16 121/57 03/15/17 07:00 97 Room Air Current Medications Current Medications Acetaminophen (Tylenol Tab) 650 mg Q6HP PRN PO HEADACHE or DISCOMFORT; Start at 14:15; Stop 04/05/17 at 14:14 Al Hydrox/Mg Hydrox/Simethicone (Mylanta) 30 ml Q4HP PRN PO HEARTBURN/ INDIGESTION; Start 03/06/17 at 14:15; Stop 04/05/17 at 14:14 Bupropion HCl (Wellbutrin Xl) 150 mg DAILY PO Last administered on 03/10/17 08 :56; Start 03/07/17 at 09:00; Stop 03/10/17 at 12:11; Status DC Citalopram Hydrobromide (CeleXA) 20 mg DAILY PO Last administered on 03/10/17 08:56; Start 03/07/17 at 09:00; Stop 03/10/17 at 12:11; Status DC Citalopram Hydrobromide (CeleXA) 40 mg DAILY PO Last administered on 03/16/17 08:48; Start 03/11/17 at 09:00; Stop 04/10/17 at 08:59 Hydroxyzine HCl (Atarax) 25 mg Q6HP PRN PO ANXIETY; Start 03/10/17 at 12:15; Stop 04/09/17 at 12:14; Status Cancel Hydroxyzine HCl (Atarax) 50 mg Q6HP PRN PO ANXIETY Last administered on 11:28; Start 03/10/17 at 12:15; Stop 04/09/17 at 12:14 Magnesium Hydroxide (Milk Of Magnesia) 30 ml DAILYPRN PRN PO CONSTIPATION; Start 03/06/17 at 14:15; Stop 04/05/17 at 14:14 Ramelteon (Rozerem) 8 mg QHS PO Last administered on 03/15/17 21:23; Start at 21:00; Stop 04/14/17 at 20:59 Trazodone HCl (Desyrel) 50 mg QHSP PRN PO INSOMNIA Last administered on 22:05; Start 03/06/17 at 14:15; Stop 03/12/17 at 10:33; Status DC Trazodone HCl (Desyrel) 100 mg QHSP PRN PO INSOMNIA Last administered on t 23:08; Start 03/12/17 at 10:45; Stop 03/15/17 at 10:13; Status DC Allergies Coded Allergies: No Known Allergies (Unverified , 03/05/17) Jane Hazel Mar 16, 2017 14:27
[2017-03-16 18:00] VITALS: BP 150/78
[2017-03-16] MEDS: RAMELTEON 8 MG TAB (ROZEREM) PO SCH (21:58)
[2017-03-17 06:37] VITALS: BP 138/72
[2017-03-17] MEDS: CitaloPRAM (CeleXA) 20 MG TAB PO SCH (08:37)
[2017-03-17] MEDS: hydrOXYzine 50 MG TAB PO PRN (13:18)
[2017-03-17] MEDS ORDERED: ROZE8TAB9 PO ×3 (13:25→14:15)
[2017-03-17] MEDS ORDERED: HYDRO50TAB PO (13:26)
[2017-03-17] MEDS ORDERED: CELE20TA PO (13:26)
[2017-03-17] MEDS ORDERED: QUET1TAB8 PO (13:28)
--- NOTE | 2017-03-17 14:21 | DS.PDOC ---
[facility] Discharge Summary Discharge Summary DATE OF ADMISSION: Mar 06, 2017 at 12:15 DATE OF DISCHARGE: Mar 17, 2017 DISCHARGE DIAGNOSES: 1. Major depressive disorder, severe recurrent without psychotic features. 2. Generalized Anxiety Disorder 3. Alcohol dependence REASON FOR ADMISSION: pt was warned not to drink in the [place]. he was caught drinking, became upset and overdosed on his Celexa and Wellbutrin. pt remained in the hospital as he was told his Command was recommending a dishonorable discharge/Article 15. This depressed him further and he was again suicidal. CONSULTANTS INVOLVED: na TREATMENT AND PROGRESS ON THE UNIT : After several days patient was able to find the resilience to adopt a fighting spirit as he does not want his career to be over. He decided he would fight the recommendation and he would follow through on all treatment recommendations, including abstaining from alcohol and following up on outpatient mental health treatment for depression and anxiety. He is agreeable to alcohol treatment. He states it is his intention to comply with all the directives by Laurie Bernal. Pt was taken off of Wellbutrin as he expressed he felt more angry since he started that medication. That could very well be the case with Wellbutrin. His Celexa was increased from 20 mg to 40 mg to more effectively treat his depression and also anxiety. He responded well to prn doses of Vistaril when angry, upset or worried. Sleep/Insomnia became a problem later in the treatment course. Trazodone was increased to 100 mg but he still could not initiate sleep. Sometimes the noise on the unit interfered but other times is was not effective and he would lie awake all night. Rozerem was added and this too was ineffective for sleep. At discharge he was prescribed Seroquel 100 mg in addition to the Rozerem. HOSPITAL COURSE: Pt had periodic epidoses when he felt suicidal but he was able to process his feelings in therapeutic groups, with peers and with freelance writer. He was able to find some geremias prior to leaving and was observed doing some silly things with peer. He played the Hortorr and used the phone to keep in contact with family. DISCHARGE ASSESSMENT: Pt was stable and free of suicidal thoughts the day of discharge. He attended a meeting with his first Sgt. and expressed his intention to fight the recommendation for discharge. His medications-name, purposes, doses and need for weekly refills were explained to him. He stated he was ready to leave the hospital and face the consequences of his actions. MENTAL STATUS EXAMINATION ON DISCHARGE: Patient is a 21-year old male, who is under the care of freelance writer for MDD , MAGO and alcohol dependence. He is casually attired in civilian clothing. Hygiene is adequate. Eye contact is good. Speech is fluent, clear. Language skills are good. Thought processes: goal directed and logical Thought content: future oriented. Abstract reasoning, and computation: good. Description of associations:good Description of abnormal or psychotic thoughts: No suicidal or homicidal thinking. No psychotic symptoms. Judgment: good. Insight: fair Orientation to person, place, time and situation. Recent and remote memory: grossly intact. Attention span and concentration: good. Fund of knowledge: Full. Mood: euthymic Affect: congruent. MEDICATIONS ON DISCHARGE: - Celexa for depression and anxiety - atarax, hydroxyzine, vistaril for anxiety. - seroquel for insomnia. -rozerem for insomnia. PLAN/FOLLOWUP ARRANGEMENTS: pt ids directed to report to the [facility] [address] [place] today. The amount of time spent in the coordination of care for this patient was approximately 35 minutes. Vital Signs/I&Os Vital Signs Date Time Temp Pulse Resp B/P (MAP) Pulse Ox O2 Delivery O2 Flow Rate FiO2 03/17/17 06:37 98.3 73 18 138/72 (94) 03/15/17 07:00 97 Room Air Medications Scheduled Citalopram Hydrobromide (Celexa) 20 Mg Tab, 40 MG PO DAILY for DEPRESSION for 7 Days, #7 Ramelteon (Rozerem) 8 Mg Tab, 8 MG PO QHS for INSOMNIA for 7 Days, #7 Ramelteon (Rozerem) 8 Mg Tab, 8 MG PO QHS for INSOMNIA, #7 Ramelteon (Rozerem) 8 Mg Tab, 8 MG PO QHS for INSOMNIA for 7 Days, #7 Scheduled PRN Hydroxyzine HCl (Hydroxyzine HCl) 50 Mg Tab, 50 MG PO Q8HP PRN for ANXIETY, #21 Quetiapine Fumerate (Quetiapine Fumarate) 100 Mg Tab, 100 MG PO QHSP PRN for INSOMNIA for 7 Days, #7 Allergies Coded Allergies: No Known Allergies (Unverified , 03/05/17) Jane Hazel Apr 26, 2017 14:21
== END 2017-03-17 14:00 | disposition home or self-care (01) | DRG 885 ==
LOC: M PSY 12:15
PROVIDERS: ADMIT Psychiatry & Neurology Child & Adolescent Psychiatry; ATTEND Psychiatry & Neurology Child & Adolescent Psychiatry
DX: F33.2 Major depressive disorder, recurrent severe without psychotic features (principal); F10.20 Alcohol dependence, uncomplicated; F41.1 Generalized anxiety disorder; Z79.899 Other long term (current) drug therapy; F17.210 Nicotine dependence, cigarettes, uncomplicated

== ENCOUNTER 2017-04-02 17:00 | Inpatient (IN) | payer OTHER ==
[~2017-04-02] VITALS: Ht 182.9 cm; Wt 82.7 kg
[~2017-04-02 17:00] MED LIST changes: +CELE20TA PO; +HYDRO50TAB PO; +QUET1TAB8 PO; +ROZE8TAB9 PO
[2017-04-02 17:38] LABS: MEAN CORPUSCULAR HGB CONC 34.8 g/dl (32.0-36.5); MEAN CORPUSCULAR VOLUME 91.8 fl (80.0-96.0); RED CELL DISTRIBUTION WIDTH 12.1 % (11.5-14.5); WHITE BLOOD COUNT 7.6 K/mm3 (4.0-10.0)
[2017-04-02 18:18] LABS: METHADONE URINE NEGATIVE (NEGATIVE)
[2017-04-02 18:25] LABS: ALBUMIN/GLOBULIN RATIO 1.18 (1.00-1.93); ALKALINE PHOSPHATASE 76 U/L (45-117); ALT/SGPT 32 U/L (12-78); ANION GAP 5 MEQ/L (8-16); AST/SGOT 23 U/L (15-37); BILIRUBIN,DIRECT 0.3 MG/DL (0.0-0.2); BILIRUBIN,TOTAL 1.1 MG/DL (0.2-1.0); BLOOD UREA NITROGEN 18 MG/DL (7-18); CALCIUM LEVEL 8.6 MG/DL (8.5-10.1); CARBON DIOXIDE LEVEL 31 MEQ/L (21-32); CHLORIDE LEVEL 103 MEQ/L (98-107); CREATININE FOR GFR 1.01 MG/DL (0.70-1.30); GLUCOSE, FASTING 89 MG/DL (70-105); POTASSIUM SERUM 4.1 MEQ/L (3.5-5.1); SODIUM LEVEL 139 MEQ/L (136-145); TOTAL PROTEIN 7.4 GM/DL (6.4-8.2)
[2017-04-02] MEDS ORDERED: HYDR50CA2 PO (23:42)
[2017-04-02] MEDS ORDERED: CELE40TA PO (23:42)
[2017-04-02 23:46] VITALS: BP 140/80
[2017-04-03] MEDS ORDERED: MOM 30ML SUSPENSION UDC PO PRN (00:30)
[2017-04-03] MEDS ORDERED: MAALOX 30 ML SUSP *UDC PO PRN (00:30)
[2017-04-03] MEDS ORDERED: ACETAMINOPHEN TAB 650MG DOSE (2X325MG) PO PRN (00:30)
[2017-04-03 06:33] VITALS: BP 150/93
[2017-04-03] MEDS: CitaloPRAM (CeleXA) 20 MG TAB PO SCH (09:27)
[2017-04-03 18:00] VITALS: BP 142/75
[2017-04-03] MEDS: QUEtiapine FUMARATE 100 MG TAB PO PRN (20:51)
[2017-04-03] MEDS: hydrOXYzine 50 MG TAB PO PRN (20:51)
--- NOTE | 2017-04-04 01:14 | MHHPE ---
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 According to the chart, the was brought to the emergency department by the chain of command after he reported that he was feeling depressed and suicidal for "1 week." He stated that his anxiety started to build up again. As a trigger, he stated that he is getting in trouble at work. He has been in the [employer] for the last 1-1/2 years. 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 He has no deployments. Reported feeling depressed and anxious most of the time. He said that he stopped taking his Seroquel two weeks ago because "it was too hard to get out of bed." He is attending [employer]. He states that he has not drank alcohol since he was discharged from our unit approximately 1 month ago. During the interview today, the patient reports having mood fluctuations and an emotional roller coaster with anger, stress, anxiety. He feels his leadership is "trying to get me in trouble." He says that he is in the process of being Chaptered out but "I am fighting it." The patient reports decreased sleep. He says his appetite is fine. As above, has mood fluctuations and intermittent suicidal thoughts. During the interview, there is no evidence of psychotic features. No auditory or visual hallucinations. The patient reports that the work situation is very difficult. He says that "They are trying to get me in trouble." "They give me 20 hours worth of work and they are telling me that I need to do it by the morning." "That makes me very angry and frustrated and very stressed." PAST MEDICAL HISTORY: The patient denies any acute medical problems. PAST PSYCHIATRIC HISTORY: The patient has been diagnosed with depression, suicidal ideation, and alcohol dependency. He was admitted to our unit on 03/06/2017. He was discharged on Celexa 40 mg daily and Seroquel 100 mg by mouth at night. During this last hospitalization, the patient had trouble sleeping and several medications were tried, including trazodone, and in the end he was discharged on Seroquel. SOCIAL HISTORY: The patient was raised by both parents. The patient denies any abuse or neglect, but says that he was bullied between ages 11 and 17, "I did not fit in." The patient said that he had a few good friends and admits having some problems socializing. He finished high school. He joined the [employer] at age 20. His family is from [place] and has a poor support system. The patient feels that when he tells his family about his problems, "They lecture me." SUBSTANCE ABUSE HISTORY: As above, the patient was drinking alcohol and is on the [employer] program but says that he is not drinking alcohol any longer. REVIEW OF SYSTEMS: CONSTITUTIONAL: No weight loss, fevers, chills, weakness or fatigue. HEENT: No visual loss, blurry vision, double vision, yellow sclerae. No hearing loss, sneezing, congestion, runny nose, or sore throat. SKIN: No rash or itching. CARDIOVASCULAR: No chest pain, chest pressure, chest discomfort, palpitations, or edema. RESPIRATORY: No shortness of breath, cough or sputum. GASTROINTESTINAL: No anorexia, nausea, vomiting, or diarrhea. No abdominal pain or blood. GENITOURINARY: No burning or pain on urination. NEUROLOGIC: No headache, dizziness, syncope, paralysis, ataxia, numbness or tingling. MUSCULOSKELETAL: No muscle, back pain, joint pain or stiffness. HEMATOLOGIC: No anemia, bleeding or bruising. LYMPHATICS: No history of splenectomy. ENDOCRINOLOGY: No reports of sweating, cold or heat intolerance. No polyuria or polydipsia. ALLERGIES: No history of asthma, hives, eczema or rhinitis. PHYSICAL EXAMINATION : As per physician's patient services assistant. LABORATORIES ON ADMISSION: Complete blood count (CBC) is unremarkable. Comprehensive metabolic panel (BMP) is within normal limits except total bilirubin of 1.1. TSH within normal limits. Blood alcohol level is negative. Urine drug screen is negative. MENTAL STATUS EXAMINATION: The patient is dressed in [facility]. The patient is cooperative. Speech is soft and monotone. Has poor eye contact. Mood is depressed, anxious and frustrated. Affect is restricted. The patient is oriented to time, place, person, and situation. Maintains attention and concentration correctly. Instant recall, recent and remote memory are intact. Thought processes are coherent, logical and goal directed. The patient does not have auditory or visual hallucinations. The patient does not have paranoid, persecutory, somatic, grandiose or sikhism delusions. The patient admits intermittent suicidal thoughts. Denies homicidal ideation. Judgment and insight are limited. DIAGNOSES: AXIS I: Major depressive disorder, rule out adjustment disorder with depressed mood. Alcohol dependency in remission. AXIS II: Deferred. AXIS III: None acute. INITIAL TREATMENT PLAN: Patient was admitted on a 9.39 legal status. Complete history was obtained. With his permission, family will be contacted, and database will be expanded. His medication regimen will be reviewed and changed accordingly. He will be provided with protected environment. He will be treated with individual, group, and milieu therapies. He will also receive supportive psychoeducation. Discharge planning will commence immediately. Length of stay will be between 5 and 7 days. Outpatient followup will be strongly recommended. The treatment plan will focus initially on depression and risk for suicide.
[2017-04-04 06:39] VITALS: BP 126/76
[2017-04-04] MEDS: CitaloPRAM (CeleXA) 20 MG TAB PO SCH (08:30)
[2017-04-04 18:00] VITALS: BP 116/59
[2017-04-04] MEDS: hydrOXYzine 50 MG TAB PO PRN (20:37)
[2017-04-04] MEDS: QUEtiapine FUMARATE 100 MG TAB PO PRN (20:37)
--- NOTE | 2017-04-05 02:10 | IPN ---
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 Patient was depressed and reported suicidal ideation for a week before admission. SUBJECTIVE: "I feel about the same." OBJECTIVE: Patient continues depressed. Patient is interacting a little better with other patients and getting out of the room. Patient is denying side effects from the medication. Patient appears to be motivated for treatment. No evidence of auditory or visual hallucinations or delusions or any other psychotic symptoms. MENTAL STATUS EXAMINATION: Patient is dressed in [facility]. Patient is clean and well groomed. He is cooperative during the exam. Poor eye contact. Speech is slow and monotone. Mood is depressed and anxious. Affect is restricted and congruent with mood. No delusions or hallucinations. Short-term, long-term memory are fair. Patient is fully oriented. Associations are intact. Thinking is logical. Thought content is appropriate. Patient is able to contract for safety and denies suicidal or homicidal ideation during the interview. Insight and judgment is limited. ASSESSMENT: 1. Depression. 2. Alcohol dependency in remission. PLAN: 1. Continue with Celexa 40 mg by mouth every morning. 2. Continue with Seroquel 100 mg by mouth nightly. 3. Continue individual and group therapy.
[2017-04-05 06:21] VITALS: BP 128/82
[2017-04-05] MEDS: CitaloPRAM (CeleXA) 20 MG TAB PO SCH (09:01)
--- NOTE | 2017-04-05 11:20 | HPEPDOC ---
Medical History and Physical Date of Admission April 02, 2017 at 21:39 History and Physical PCP: [facility] ATTENDING: Dr. Javon Gar HPI: 21yoM admitted to [facility] for unspecified depressive disorder, being medically examined today. No acute medical complaints today. Denies any fevers, chills, weakness, fatigue, [place], CP, SOB, cough, palpitations, abdominal pain, N/V /D or changes in bowel or bladder habits. 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 ROS: As noted in HPI, otherwise 11pt ROS of systems reviewed and unremarkable. PE: GEN: 21 yo M, appears stated age. Well-nourished, well developed. No acute distress. Alert and oriented x 3. Pleasant, interactive. HEENT: Normocephalic, atraumatic. Pupils are equal, round, and reactive to light. Extraocular movements are intact. No nystagmus appreciated. Sclera are nonicteric. Conjunctiva without injection. Nose midline. Nasal turbinates without bogginess. EACs both patent BL. TMs both visualized and erickson with good cone of light, no bulging or erythema. No facial asymmetry. Moist mucous membranes. Dentition fair. Pharynx pink and moist, no cobblestoning. Neck supple , trachea midline. No lymphadenopathy or thyromegaly appreciated. CHEST: Regular rate and rhythm, +S1, +S2 LUNGS: Clear to auscultation bilaterally. No wheezes, rales, or rhonchi. Breathing appears symmetric and easy. Patient is speaking in full sentences. No accessory muscle use. ABD: Round, soft, non-tender, non-distended. +Bowel sounds throughout. No rebound or guarding. No costovertebral angle tenderness. EXT: Pulses 2+ bilaterally dorsalis pedis and radial. No lower extremity edema appreciated. SKIN: [place], dry, warm. Capillary refill <2sec. No rashes. NEURO: Alert and oriented x 3. Cranial nerves III-XII are intact. No focal deficits appreciated. EK03/06/17 SINUS RHYTHM 77bpm Early repolarization A&P: 21yoM admitted to [facility] for unspecified depressive disorder 1. Psych. Plan per Psychiatry. EKG on file. 2. Nicotine dependence. Patch available. 3. Follow up with PCP on discharge. 4. Staff member Andres present throughout exam. Vital Signs Vital Signs Date Time Temp Pulse Resp B/P (MAP) Pulse Ox O2 Delivery O2 Flow Rate FiO2 04/05/17 06:21 97.0 67 18 128/82 (97) Room Air 04/03/17 06:33 16 Laboratory Data Labs 24H Item Value Date Time White Blood Count 7.6 K/mm3 04/02/17 1730 Red Blood Count 5.21 M/mm3 04/02/17 1730 Hemoglobin 16.6 g/dl 04/02/17 1730 Hematocrit 47.8 % 04/02/17 1730 Mean Corpuscular Volume 91.8 fl 04/02/17 1730 Mean Corpuscular Hemoglobin 32.0 pg 04/02/17 1730 Mean Corpuscular Hemoglobin Concent 34.8 g/dl 04/02/17 1730 Red Cell Distribution Width 12.1 % 04/02/17 1730 Platelet Count 216 k/mm3 04/02/17 1730 Sodium Level 139 MEQ/L 04/02/17 1730 Potassium Level 4.1 MEQ/L 04/02/17 1730 Chloride Level 103 MEQ/L 04/02/17 1730 Carbon Dioxide Level 31 MEQ/L 04/02/17 1730 Anion Gap 5 MEQ/L L 04/02/17 1730 Blood Urea Nitrogen 18 MG/DL 04/02/17 1730 Creatinine 1.01 MG/DL 04/02/17 1730 Fasting Glucose 89 MG/DL 04/02/17 1730 Calcium Level 8.6 MG/DL 04/02/17 1730 Total Bilirubin 1.1 MG/DL H 04/02/17 1730 Direct Bilirubin 0.3 MG/DL H 04/02/17 1730 Aspartate Amino Transf (AST/SGOT) 23 U/L 04/02/17 1730 Alanine Aminotransferase (ALT/SGPT) 32 U/L 04/02/17 1730 Alkaline Phosphatase 76 U/L 04/02/17 1730 Total Protein 7.4 GM/DL 04/02/17 1730 Albumin 4.0 GM/DL 04/02/17 1730 Albumin/Globulin Ratio 1.18 04/02/17 1730 Thyroid Stimulating Hormone (TSH) 0.933 uIU/ML 04/02/17 1730 Salicylates Level < 1.7 MG/DL L 04/02/17 1730 Urine Opiates Screen NEGATIVE 04/02/17 1738 Urine Methadone Screen NEGATIVE 04/02/17 1738 Acetaminophen Level < 2.0 UG/ML L 04/02/17 1730 Urine Barbiturates Screen NEGATIVE 04/02/17 1738 Urine Phencyclidine Screen NEGATIVE 04/02/17 1738 Urine Amphetamines Screen NEGATIVE 04/02/17 1738 Urine Benzodiazepines Screen NEGATIVE 04/02/17 1738 Urine Cocaine Metabolite Screen NEGATIVE 04/02/17 1738 Urine Cannabinoids Screen NEGATIVE 04/02/17 1738 Ethyl Alcohol Level < 0.003 % 04/02/17 1730 Home Medications Scheduled Citalopram Hydrobromide (Celexa) 40 Mg Tab, 40 MG PO DAILY Scheduled PRN Hydroxyzine Pamoate (Hydroxyzine Pamoate) 50 Mg Cap, 50 MG PO Q8H PRN for ANXIETY Allergies Coded Allergies: No Known Allergies (Unverified , 03/05/17) Nanci Jordan April 05, 2017 11:20
--- NOTE | 2017-04-05 15:32 | IPN ---
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 The patient was significantly depressed and reporting suicidal ideation. SUBJECTIVE: "I'm feeling a little better." OBJECTIVE: No major changes from admission, although the patient reports some improvement. The patient continues depressed and anxious with a sad, restricted facial expression and psychomotor retardation. The patient is able to contract for safety during the interview. There is no evidence of auditory or visual hallucinations or delusions. The patient is denying any side effect from the medication. MENTAL STATUS EXAMINATION: The patient is dressed in [facility]. The patient is cooperative during the examination. He has fair eye contact. His speech is slow and monotone. Mood is depressed and anxious. Affect is labile and restricted. No delusions or hallucinations. Short and long-term memory are fair. The patient is fully oriented. Associations are intact. Thinking is logical. Thought content is appropriate. The patient is able to contract for safety during the interview and denies suicidal or homicidal ideation. Insight and judgment is limited. ASSESSMENT: 1. Depression. 2. Suicidal ideation. 3. Alcohol dependency, in remission. PLAN: 1. Continue with Celexa 40 mg by mouth every morning. 2. Continue with Seroquel 100 mg by mouth at bedtime. 3. Continue with medication management, individual and group therapy.
[2017-04-05 18:00] VITALS: BP 134/80
[2017-04-05] MEDS: hydrOXYzine 50 MG TAB PO PRN (20:20)
[2017-04-05] MEDS: QUEtiapine FUMARATE 100 MG TAB PO PRN (20:20)
[2017-04-06 06:13] VITALS: BP 132/63
[2017-04-06] MEDS: CitaloPRAM (CeleXA) 20 MG TAB PO SCH (08:45)
[2017-04-06] MEDS: hydrOXYzine 50 MG TAB PO PRN ×2 (14:17→20:42)
--- NOTE | 2017-04-06 15:16 | IPN ---
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 The patient was significantly depressed and reporting suicidal ideation. SUBJECTIVE: "I'm starting to feel better." OBJECTIVE: The patient continues with psychomotor retardation, sad, restricted facial expressions, interacts very little with other patients and staff. He took his breakfast to the room and did not eat in the lounge. Staff feels that the patient is minimizing. During the interview today, the patient reports some improvement but appears to be minimizing the symptoms. The patient denies side effect from the medication, although reports some drowsiness in the morning. MENTAL STATUS EXAMINATION: The patient is dressed in [facility]. The patient is cooperative during the examination. He has fair eye contact. His speech is slow and monotone. Mood is depressed and anxious. Affect is labile and restricted. No delusions or hallucinations. Memory is fair. The patient is fully oriented. Associations are intact. Thinking is logical. Thought content is appropriate. The patient is able to contract for safety during the interview. Insight and judgment is limited. ASSESSMENT: 1. Depression. 2. Suicidal ideation. 3. Alcohol dependency, in remission. PLAN: 1. Continue Celexa 40 mg by mouth every morning. 2. Decrease Seroquel to 75 mg by mouth at bedtime. 3. Continue medication management, individual and group therapy.
[2017-04-06 18:14] VITALS: BP 132/88
[2017-04-06] MEDS: QUEtiapine FUMARATE 25 MG TAB PO SCH (20:42)
[2017-04-07 06:14] VITALS: BP 136/66
[2017-04-07] MEDS: CitaloPRAM (CeleXA) 20 MG TAB PO SCH (08:53)
--- NOTE | 2017-04-07 16:21 | IPN ---
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 The patient was significantly depressed and reporting suicidal thoughts. SUBJECTIVE: "I am feeling better." OBJECTIVE: The patient continues with restricted, sad facial expressions, interacting very little with other patients and staff. He is taking his meals in the room and does not want to go to the lounge because "there are many patients there." The patient continues with some degree of psychomotor retardation and appears to be minimizing the symptoms. There is no evidence of psychotic features. No auditory or visual hallucinations or delusions. MENTAL STATUS EXAMINATION: The patient is dressed in [facility]. The patient is cooperative during the examination. He has fair eye contact. His speech is slow and monotone. Mood is depressed and anxious. Affect is labile and restricted. No delusions or hallucinations. Memory, attention and concentration are fair. The patient is able to contract for safety during the interview. Insight and judgment is limited. ASSESSMENT: 1. Depression. 2. Suicidal ideation. 3. Alcohol dependency, in remission. PLAN: 1. Continue Celexa 40 mg by mouth every morning. 2. Continue Seroquel 75 mg by mouth at bedtime. 3. Continue medication management, individual and group therapy.
[2017-04-07 18:07] VITALS: BP 130/78
[2017-04-07] MEDS: QUEtiapine FUMARATE 25 MG TAB PO SCH (22:12)
[2017-04-07] MEDS: hydrOXYzine 50 MG TAB PO PRN (22:12)
[2017-04-08 07:04] VITALS: BP 144/66
[2017-04-08] MEDS: CitaloPRAM (CeleXA) 20 MG TAB PO SCH (09:19)
[2017-04-08] MEDS ORDERED: QUEtiapine FUMARATE 25 MG TAB PO PRN (17:00)
[2017-04-08] MEDS: hydrOXYzine 50 MG TAB PO PRN (17:14)
[2017-04-08 18:00] VITALS: BP 138/64
[2017-04-08] MEDS ORDERED: QUEtiapine FUMARATE 50 MG TAB PO SCH (21:00)
--- NOTE | 2017-04-08 22:57 | IPN ---
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 Patient was significantly depressed, reporting suicidal thoughts at admission. 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 SUBJECTIVE: "I'm ready to go." OBJECTIVE: Patient is improving slowly. His facial expression is somewhat restricted. He has difficulty interacting with other patients and has a tendency to stay by himself; however, he reported no suicidal ideation and reports readiness to be discharged. As stated above, records show that he has been diagnosed with ADHD and Asperger's disorder and probably will have difficulty dealing with the current [place]. MENTAL STATUS EXAMINATION: Patient is dressed in [facility]. Patient is cooperative during exam. Has fair eye contact. Speech is normal in rate, volume, and articulation. Mood is depressed and anxious but significantly improved from admission. Affect restricted. Attention and concentration are fair. Patient able to contract for safety. Denies suicidal or homicidal ideation and displays readiness for discharge. ASSESSMENT: 1. Depression. 2. Suicidal ideation. 3. Attention deficit hyperactivity disorder. 4. Asperger's syndrome. Increase Seroquel to 50 mg at bedtime plus 25 as needed for insomnia. 3. Continue medication management and individual and group therapy. 4. Will schedule chain of command meeting for tomorrow and start the discharge process.
[2017-04-09 06:58] VITALS: BP 157/69
[2017-04-09] MEDS: CitaloPRAM (CeleXA) 20 MG TAB PO SCH (09:03)
[2017-04-09] MEDS ORDERED: QUET5TAB PO (11:46)
[2017-04-09] MEDS ORDERED: CELE20TA PO (11:46)
--- NOTE | 2017-04-10 21:25 | MHDS ---
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 According to the chart, the patient was referred to the emergency department by his chain of command after he reported that he was feeling depressed and suicidal for "one week." He stated that his anxiety "started to build up again." As a trigger, he stated that he is getting in trouble at work. He has been in the [employer] for the last year and a half. 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 He has no deployments. He reported feeling depressed and anxious most of the time. He stated that he stopped taking his Seroquel two weeks prior to this admission because "it was hard to get out of bed." He is attending [employer], says that he has not drank alcohol since he was discharged from our unit approximately one month ago. During the interview today, the patient reports having mood fluctuation and an "emotional roller coaster." Says that he gets anger frequently, very stressed , high anxiety. He feels his leadership is not supportive and says that he is in the process of being chaptered out, but "I'm fighting it." He reports decreased sleep, says that his appetite is fine. As above, he reported mood fluctuation and intermittent suicidal thought. During the interview, there is no evidence of psychotic features, no auditory or visual hallucinations or delusions. The patient again identifies as a stressor the fact that "they give me 20 hours worth of work and they are telling me that I need to do it by the morning" and reports that this is making him very frustrated, stressed, and angry. During his last hospitalization in our unit, the patient reported that he was drinking alcohol on a daily basis to be able to cope. Finally, and due to the symptoms explained above, he ended up overdosing on Wellbutrin and Celexa. It was also mentioned during the admitting process that he had a knife and there was a serious concern about suicidal ideation. He has been seen fairly frequently by his therapist at [facility], Jitendra Perry. His note reflects that the patient has been having symptoms of depression and anxiety, decreased energy, decreased motivation, feeling sad, and loss of interest. Also has been reported social anxiety and difficulty communicating with others. There is a suspicion that the patient may suffer from Asperger disorder and also attention deficit hyperactivity disorder (ADHD). He reports that he was expelled from school, but then he obtained his general education diploma (GED), and he was bullied during his school years. He also experimented with cocaine before joining the [employer]. In the context of being on the spectrum and suffering from Asperger's, his ability to analyze and integrate the surroundings are impaired. His is quick and he is bound to react with a "bad attitude." Seems like every small problem is the last drop that makes him very frustrated, anxious, and angry, and during his last hospitalization ended up overdosing. LABORATORY DATA: On admission, CBC is unremarkable, CMP within normal limits. TSH within normal limits. Blood alcohol level is negative. Urine drug screen negative. HOSPITAL COURSE: After the first evaluation, pt was started on Celexa 40 mg daily and Seroquel 100 mg po qhs. 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 After a few days of treatment pt was feeling better. He has improved slowly but steadily. His symptoms are compatible with attention deficit disorder (ADD) and Asperger's. He has difficulty making a good analysis of his surroundings. He has difficulty with abstractions. He is difficulty interpreting intentions of others. He has a tendency toward negativity, cognitive distortions, frustration, irritability and anger. Before discharge, I discussed his clinical symptoms with Jitendra Perry, and also recommended to continue his treatment in light of possibility that he has ADD, marked inattention and Asperger's in addition to depression and anxiety, which makes it very difficult to cope on a daily basis with duties. Also it was advised to talk with Colonel Hernandez to get advice and recommendations. At the moment of discharge, the patient is in stable condition. The patient does not have auditory or visual hallucinations, delusions, suicidal or homicidal ideation. The patient is able to contract for safety. The patient wants to continue with his career. The patient has low insight into the effects of his diagnosis ADD/Asperger's into his daily decisions and his ability to cope in the . The night before discharge, another patient threatened him, but he handled the situation well. He basically told him to get away. He went to his room, and after a while calmed down. The only negative incident is in between he punched the hand disinfectant in the wall, but he handled this situation pretty well given the circumstances that he was threatened by this other patient. The patient has tolerated well the medication. He is denying side effect. The patient had no other complications during this hospital admission other than the above mentioned incident with this other patient. MEDICATIONS AT DISCHARGE: - Seroquel 50 mg by mouth at bedtime - Celexa 40 mg by mouth every morning MENTAL STATUS EXAMINATION AT DISCHARGE: The patient is dressed in [facility]. The patient is calm and cooperative. The patient's speech is clear, coherent, with normal rate and is spontaneous. The patient has good eye contact. Mood is slightly anxious and depressed, but significantly improved from admission. Affect is appropriate and congruent with mood. The patient is oriented to time, place, person and situation. Maintains attention and concentration correctly. Insight recall, recent and remote memory are intact. Thought processes are coherent, logical and goal directed. The patient does not have auditory or visual hallucinations. The patient does not have paranoid, persecutory, somatic, grandiose or anabaptism delusions. The patient is denying suicidal or homicidal ideations. Judgment and insight are limited. DIAGNOSES: [place] I: Major depressive disorder. Rule out attention deficit hyperactivity disorder (ADHD). Rule out Asperger's. Alcohol dependency in remission. [place] II: Deferred. [place] III: None acute. INSTRUCTIONS TO THE PATIENT: Patient is to continue taking his medications as prescribed and followup appointments. He is advised to maintain absolute sobriety from drugs and alcohol. The patient has scheduled appointment for psychotropic medication management, individual psychotherapy, and primary care physician. JEFFREY
== END 2017-04-09 13:30 | disposition home or self-care (01) | DRG 881 ==
LOC: M ED 18:01 → M ED INP 21:39 → M PSY 04-03 00:08
PROVIDERS: ADMIT Psychiatry & Neurology Psychiatry; ATTEND Psychiatry & Neurology Psychiatry
DX: F32.9 Major depressive disorder, single episode, unspecified (principal); F90.9 Attention-deficit hyperactivity disorder, unspecified type; F10.21 Alcohol dependence, in remission; F84.5 Asperger's syndrome; F17.200 Nicotine dependence, unspecified, uncomplicated

== ENCOUNTER 2017-06-22 18:09 | Inpatient (IN) | payer OTHER ==
[~2017-06-22] VITALS: Ht 182.9 cm; Wt 87.4 kg
[~2017-06-22 18:09] MED LIST changes: +CELE40TA PO; +HYDR50CA2 PO; +QUET5TAB PO; +ROZE8TAB16 PO; -ROZE8TAB9 PO
[2017-06-22] MEDS ORDERED: LUNE2TAB23 PO (19:01)
[2017-06-22] MEDS ORDERED: EFFE75CA75 PO (19:01)
[2017-06-22 21:41] LABS: MEAN CORPUSCULAR HEMOGLOBIN 31.9 pg (27.0-33.0); MEAN CORPUSCULAR HGB CONC 34.9 g/dl (32.0-36.5); MEAN CORPUSCULAR VOLUME 91.5 fl (80.0-96.0); RED CELL DISTRIBUTION WIDTH 12.4 % (11.5-14.5); WHITE BLOOD COUNT 4.9 K/mm3 (4.0-10.0)
[2017-06-22 22:01] LABS: METHADONE URINE NEGATIVE (NEGATIVE)
[2017-06-22 22:10] LABS: ALBUMIN 3.9 GM/DL (3.2-5.2); ALBUMIN/GLOBULIN RATIO 1.18 (1.00-1.93); ALKALINE PHOSPHATASE 75 U/L (45-117); ALT/SGPT 25 U/L (12-78); ANION GAP 11 MEQ/L (8-16); AST/SGOT 23 U/L (15-37); BILIRUBIN,DIRECT 0.2 MG/DL (0.0-0.2); BLOOD UREA NITROGEN 12 MG/DL (7-18); CALCIUM LEVEL 8.7 MG/DL (8.5-10.1); CARBON DIOXIDE LEVEL 25 MEQ/L (21-32); CHLORIDE LEVEL 105 MEQ/L (98-107); CREATININE FOR GFR 1.08 MG/DL (0.70-1.30); GLOMERULAR FILTRATION RATE > 60.0 (>60); GLUCOSE, FASTING 101 MG/DL (70-105); POTASSIUM SERUM 4.5 MEQ/L (3.5-5.1); SODIUM LEVEL 141 MEQ/L (136-145); TOTAL PROTEIN 7.2 GM/DL (6.4-8.2)
[2017-06-23] MEDS ORDERED: MOM 30ML SUSPENSION UDC PO PRN (01:30)
[2017-06-23] MEDS ORDERED: MAALOX 30 ML SUSP *UDC PO PRN (01:30)
[2017-06-23] MEDS ORDERED: ACETAMINOPHEN TAB 650MG DOSE (2X325MG) PO PRN (01:30)
[2017-06-23] MEDS ORDERED: OLANZapine 5 MG TAB PO PRN (01:30)
[2017-06-23 06:58] VITALS: BP 146/75
[2017-06-23] MEDS: VENLAFAXINE **XR** 75MG CAPSULE PO SCH (08:41)
[2017-06-23] MEDS: NICOTINE 21MG/24HR 1 EA TRANSDERMAL TD SCH (08:42)
--- NOTE | 2017-06-23 09:05 | HPEPDOC ---
Medical History and Physical Date of Admission Jun 22, 2017 at 22:58 History and Physical PCP: [facility] ATTENDING: Dr. Javon Gar HPI: 22yoM admitted to [facility] for MDD, being medically examined today. No acute medical complaints today. Denies any fevers, chills, weakness, fatigue, [place], CP, SOB, cough, palpitations, abdominal pain, N/V/D or changes in bowel or bladder habits. 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 Pt states "few beers" prior to admission. Illicit Drugs: Denies IV Drug Use: Denies Tattoos done unprofessionally: Denies FAMHX: Mother: Alive, well Father: Alive, well Siblings: One sister Alive, well Children: None Unexpected deaths due to medical reasons: None. ROS: As noted in HPI, otherwise 11pt ROS of systems reviewed and unremarkable. PE: GEN: 21 yo M, appears stated age. Well-nourished, well developed. No acute distress. Alert and oriented x 3. Pleasant, interactive. HEENT: Normocephalic, atraumatic. Pupils are equal, round, and reactive to light. Extraocular movements are intact. No nystagmus appreciated. Sclera are nonicteric. Conjunctiva without injection. Nose midline. Nasal turbinates without bogginess. EACs both patent BL. TMs both visualized and erickson with good cone of light, no bulging or erythema. No facial asymmetry. Moist mucous membranes. Dentition fair. Pharynx pink and moist, no cobblestoning. Neck supple , trachea midline. No lymphadenopathy or thyromegaly appreciated. CHEST: Regular rate and rhythm, +S1, +S2 LUNGS: Clear to auscultation bilaterally. No wheezes, rales, or rhonchi. Breathing appears symmetric and easy. Patient is speaking in full sentences. No accessory muscle use. ABD: Round, soft, non-tender, non-distended. +Bowel sounds throughout. No rebound or guarding. No costovertebral angle tenderness. EXT: Pulses 2+ bilaterally dorsalis pedis and radial. No lower extremity edema appreciated. SKIN: [place], dry, warm. Capillary refill <2sec. No rashes. NEURO: Alert and oriented x 3. Cranial nerves III-XII are intact. No focal deficits appreciated. EK03/06/17 SINUS RHYTHM 77bpm Early repolarization A&P: 22yoM admitted to [facility] for MDD 1. Psych. Plan per Psychiatry. EKG on file. 2. Nicotine dependence. Patch available. 3. Follow up with PCP on discharge. 4. Staff member Andres present throughout exam. Vital Signs Vital Signs Date Time Temp Pulse Resp B/P (MAP) Pulse Ox O2 Delivery O2 Flow Rate FiO2 06/23/17 06:58 97.7 63 16 146/75 (98) 06/22/17 23:48 96 Room Air Laboratory Data Labs 24H Laboratory Tests 2 06/22/17 21:31: Anion Gap 11, Glomerular Filtration Rate > 60.0, Calcium Level 8.7, Aspartate Amino Transf (AST/SGOT) 23, Alanine Aminotransferase (ALT/SGPT) 25, Alkaline Phosphatase 75, Total Bilirubin 1.0, Direct Bilirubin 0.2, Total Protein 7.2, Albumin 3.9, Albumin/Globulin Ratio 1.18, Thyroid Stimulating Hormone (TSH) 1.980, Salicylates Level < 1.7L, Urine Amphetamines Screen NEGATIVE, Urine Benzodiazepines Screen NEGATIVE, Urine Opiates Screen NEGATIVE, Urine Methadone Screen NEGATIVE, Acetaminophen Level < 2.0L, Urine Barbiturates Screen NEGATIVE , Urine Phencyclidine Screen NEGATIVE, Urine Cocaine Metabolite Screen NEGATIVE , Urine Cannabinoids Screen NEGATIVE, Ethyl Alcohol Level 0.143H CBC/BMP Laboratory Tests 06/22/17 21:31 Red Blood Count 5.25, Mean Corpuscular Volume 91.5, Mean Corpuscular Hemoglobin 31.9, Mean Corpuscular Hemoglobin Concent 34.9, Red Cell Distribution Width 12.4 Home Medications Scheduled Eszopiclone (Lunesta) 2 Mg Tab, 2 MG PO QHS Venlafaxine Hydrochloride (Effexor Xr) 75 Mg Cap, 75 MG PO DAILY Allergies Coded Allergies: No Known Allergies (Unverified , 03/05/17) Nanci Jordan Jun 23, 2017 09:05
[2017-06-23 18:00] VITALS: BP 151/71
[2017-06-23] MEDS: traZODone 50 MG TAB PO PRN (22:01)
--- NOTE | 2017-06-23 22:50 | MHHPEPDOC ---
[facility] History & Physical History and Physical DATE OF ADMISSION: Jun 22, 2017 at 22:58 LEGAL STATUS AT ADMISSION: 9.39 CHIEF COMPLAINT: "I'm tired of people watching me all the time" HISTORY OF THE PRESENT ILLNESS: Patient is a 22-year-old male with known history of Major Depressive Disorder vs. Adjustment Disorder and possible diagnoses of ADHD and Autism Spectrum Disorder who presented to the ED via EMS after drinking while on duty and being chased by Police after he threatened to harm co-workers because they would not leave him alone. Patient has a history of alcohol abuse and underage drinking for which he was entered into the [facility]AC program at [place]. This was initially begun in February 2017 after he was admitted to [facility] for suicidal ideation and found to have been drinking heavily at that time. The patient states that since his discharge in February he has remained sober up until the past several days. He does not identify a trigger which caused him to start drinking but does state "I'm tired of people watching me all the time; they're trying to get me for something, they want me out." He admits to drinking a few beers prior to his job on the day of admission and leaving a bathroom after which he was cornered by several co-workers. He told them he would harm them if they tried to stop him and he ran off because of this continued wish to not deal with perceived examination. Patient states that this resulted in MPs being called on him and being escorted to [facility] for evaluation. Patient indicates that he is accepting of the idea that the may terminate his service after this latest event stating "they were going to do it anyways, just looking for an excuse." He feels that the worked well for him for the first year of service but in the past 6 months he has felt heavily scrutinized with all his actions. 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 He says that he initially joined the because he had no other options as his parents were not going to pay for his college. Now he plans on returning to his home town to live with friends while working a job to afford school. He is irritable and non-committal in many of his answers. Patient appears to not appreciate the reasons why he is currently in the hospital. When asked about suicidal intent at the time of the last event he shrugs and states "I don' t know. Maybe. Probably not." He answers in similar fashion when asked about his supposed diagnoses of ADHD and Asperger's but has no recollection of who first diagnosed these conditions for him. PSYCHIATRIC REVIEW OF SYSTEMS: Reports poor sleep which he identifies as secondary to his extra duty assignments; indicates that he has no interest in daily activities and that his mood is "terrible"; he denies current or recent suicidal ideation but reports having had it in the past; he feels his concentration has gotten worse due to poor sleep. He also notes anxiety, particularly associated with having to interact with others. This has been a long-standing difficulty for him and resulted in bullying when he was young. He does reports difficulty falling asleep as well as feelings of stiffness/soreness. Patient has had increased irritability and an increase in drinking recently. He denies having auditory or visual hallucinations; he reports paranoia regarding his command trying to have his service terminated PAST PSYCHIATRIC HISTORY: Prior Psychiatric Disorder: Major Depressive Disorder; Adjustment Disorder; this is 3rd admission to [facility] since February 2017 Outpatient Treatment: [facility] Suicidal/Self injurious: suicidal ideations in the past; no attempts Psychotropic Medication History: Adderall in the past for ADHD; Celexa and Venlafaxine for MDD; previous trials of Wellbutrin, Seroquel, and trazodone ALLERGIES: Please see below. FAMILY PSYCHIATRIC HISTORY: Denies family psychiatric history or history of suicides/attempts SOCIAL HISTORY: Reports that he had a decent childhood but states he does not talk to his family anymore because "I feel like they've heard about me getting in trouble enough." He completed high school with average grades and joined the to be able to pay for college. He is currently serving at [place] and has no family in the area SUBSTANCE ABUSE HISTORY: Prior records indicate that he began drinking alcohol as early as 15 and has continued since then; he was found to be drinking underage while on the [email or web address] to the point where he was regularly impaired at work; he denies the use of marijuana or other illicit drugs PAST MEDICAL/SURGICAL HISTORY: no medical/surgical history Vital Signs Date Time Temp Pulse Resp B/P (MAP) Pulse Ox O2 Delivery O2 Flow Rate FiO2 06/22/17 22:45 98.4 98 18 144/87 (106) 100 06/22/17 23:48 Room Air MENTAL STATUS EXAMINATION: This is a 22-year old man who appears the stated age and is dressed in [facility]. His speech is fluent, coherent, and has normal rate and rhythm, the tone is flat, without appreciable inflection. His thought process is linear and goal-directed, mildly perseverative on the thought of having his service terminated. He denies suicidal or homicidal ideations as well as delusions/paranoia, none eliciited during the interview. Patient appears to have limited abstraction. His cognition appears grossly intact, however he has limited cooperation with the interview. His mood is "this is all over" and his affect is dysphoric with blunted to flat expression. His insight and judgement are both poor. 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 He has been poorly complaint in the outpatient setting with his [facility] program. Patient appears to have a low frustration tolerance and a tendency to regress to primitive defences when under stress. It is unclear at this point how much of his behavior is willful or whether the patient actually as some form of Autism Spectrum Disorder. Clinic records from [place] indicate that he has normal relatability which would speak to a more willful behavior. Patient expresses that medications work poorly for him and as a result he appears to have never attempted an optimization of his medication regimen. Given his current affective instability represented in his history the patient would benefit from inpatient admission for stabilization and medication optimization at this time. PROBLEM LIST: 1. Depressed mood 2. Relationship Difficulties 3. Altered thoughts INITIAL TREATMENT PLAN: 1. Patient was admitted on a 9.39 status 2. Complete history was obtained. 3. With patients permission, family will be contacted and database will be expanded. 4. Patients medication regimen will be reviewed and changed accordingly. 5. Patient will be provided with protected environment. 6. Patient will be treated with individual, group, and milieu therapies. 7. Patient will receive supportive psych-education. 8. Discharge planning will commence immediately. 9. Outpatient follow-up treatment will be strongly recommended. 10. The initial treatment plan will focus initially on: * Depression. * Risk for suicide. * Substance abuse. ESTIMATED LENGTH OF STAY: 5-7 DAYS. TIME SPENT COUNSELING AND COORDINATING INITIAL CARE: 60 minutes. Medications Scheduled Eszopiclone (Lunesta) 2 Mg Tab, 2 MG PO QHS, (Reported) Venlafaxine Hydrochloride (Effexor Xr) 75 Mg Cap, 75 MG PO DAILY, (Reported) Allergies Coded Allergies: No Known Allergies (Unverified , 03/05/17) TEJAS SCHWARZ MD Jun 23, 2017 22:34
[2017-06-24 06:21] VITALS: BP 147/80
[2017-06-24] MEDS: VENLAFAXINE **XR** 75MG CAPSULE PO SCH (08:33)
[2017-06-24] MEDS: NICOTINE 21MG/24HR 1 EA TRANSDERMAL TD SCH (08:59)
[2017-06-24 12:00] VITALS: BP 126/72
--- NOTE | 2017-06-24 14:20 | MHIPNPDOC ---
[facility] Progress Note Progress Note DATE OF SERVICE: 06/24/17 HISTORY: Patient reports having attended a few groups and being able to talk to others. Feels hopeless regarding his career, remains convinced that his command will discharge him. Patient states he has accepted this but is unsure of how to proceed if his is discharged dishonorably. He says that he has panic attacks and is unable to think straight, this has only been an issue for him since being in the . 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 NEW TEST RESULTS: No new labs. CURRENT MEDICATIONS: See below. MENTAL STATUS EXAMINATION: 22 year old male who appears the stated age; he is dressed in [facility]. Behavior is cooperative, but surly; no psychomotor changes noted during the interview. His speech is fluent, with normal rate and rhythm. His thought processes appear rigid, but are goal-oriented; patient is noted to catastrophize at times. He has intact associations, but appears to have difficulty with abstracting. He denies suicidal or homicidal ideation; paranoid thoughts regarding his command are evident; no evidence of delusional beliefs. Insight is poor, his judgement appears fair. The patient's cognition appears grossly intact and he is oriented to person, place, and time. His stated mood is "whatever" and his affect is dysphoric with restricted range, it appears congruent to his thought content. 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 Patient continues to display poor insight into the consequences of his actions. He does appear hopeless regarding his current situation and may be experiencing a temporary worsening of a depressed mood. Currently the patient is displacing his agency onto others and identifies that nothing helps his mood because "I'm in such a terrible situation that nothing can change that fact." He denies the need for medication adjustments because no medications have helped in the past. Patient appears to be unstable and is resisting treatment at this time. He will need continued observation and evaluation to determine a safe discharge plan. MANAGEMENT PLAN: Continue current medications; encourage patient to attend group sessions while on the unit; encourage patient to consider psychotherapy in an outpatient setting; will discuss with patient's TARYN regarding eventual discharge planning. TIME SPENT: 15 minutes. Vital Signs Vital Signs Date Time Temp Pulse Resp B/P (MAP) Pulse Ox O2 Delivery O2 Flow Rate FiO2 06/24/17 06:21 97.3 68 18 147/80 (102) 06/22/17 23:48 96 Room Air Current Medications Current Medications Acetaminophen (Tylenol Tab) 650 mg Q6HP PRN PO HEADACHE or DISCOMFORT; Start at 01:30; Stop 07/23/17 at 01:29 Al Hydrox/Mg Hydrox/Simethicone (Mylanta) 30 ml Q4HP PRN PO HEARTBURN/ INDIGESTION; Start 06/23/17 at 01:30; Stop 07/23/17 at 01:29 Home Med (Med Rec Complete!) ASDIRECTED XX ; Start 06/22/17 at 23:30; Stop at 23:30; Status DC Magnesium Hydroxide (Milk Of Magnesia) 30 ml DAILYPRN PRN PO CONSTIPATION; Start 06/23/17 at 01:30; Stop 07/23/17 at 01:29 Nicotine (Nicoderm Cq 21mg) 1 patch DAILY TD ; Start 06/23/17 at 09:00; Stop 07/23 at 08:59 Olanzapine (ZyPREXA) 5 mg Q4HP PRN PO AGITATION; Start 06/23/17 at 01:30; Stop 07/23/17 at 01:29 Trazodone HCl (Desyrel) 50 mg QHSP PRN PO INSOMNIA Last administered on 22:01; Start 06/23/17 at 01:30; Stop 07/23/17 at 01:29 Venlafaxine HCl (Effexor Xr) 75 mg DAILY PO Last administered on 06/24/17 08:33; Start 06/23/17 at 09:00; Stop 07/23/17 at 08:59 Allergies Coded Allergies: No Known Allergies (Unverified , 03/05/17) TEJAS SCHWARZ MD Jun 24, 2017 14:20
[2017-06-24 18:00] VITALS: BP 157/67
[2017-06-24] MEDS: traZODone 50 MG TAB PO PRN (23:05)
[2017-06-25 06:24] VITALS: BP 147/63
[2017-06-25] MEDS: NICOTINE 21MG/24HR 1 EA TRANSDERMAL TD SCH (08:39)
[2017-06-25] MEDS: VENLAFAXINE **XR** 75MG CAPSULE PO SCH (08:40)
--- NOTE | 2017-06-25 15:51 | MHIPNPDOC ---
[facility] Progress Note Progress Note DATE OF SERVICE: 06/25/17 HISTORY: Patient remains mostly isolative, infrequently engages in group activities. 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 A brief discussion was had with the patient regarding the process of discharge; he states that it will likely take 3-6 months. When asked how he will continue with his service during this time the patient shrugs but does not volunteer information about how he will cope. VITAL SIGNS: See below. NEW TEST RESULTS: No new labs CURRENT MEDICATIONS: See below. MENTAL STATUS EXAMINATION: 22 year old male who appears the stated age, dressed in [facility]; cooperative but sullen during the interview. His speech is fluent, with regular rate and rhythm; notable for paucity of content. His though processes appear concrete and goal-oriented, his abstraction and ability to manipulate information appears limited; he denies the presence of SI/HI. Patient also denies active hallucinations. His insight and judgement appear poor. His mood is "not terrible, but not good"; affect is sad, restricted range; congruent to stated thought content. 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 He has consistently denied suicidal ideation or intent since his hospitalization. However, the patient has poor insight into his behaviors and continues to externalize all problems rather than acknowledging his contributions. Given his past failure with outpatient alcohol use counseling it is likely that the patient will fail again as he continues to blame the for his problems. MANAGEMENT PLAN: Encourage patient to participate in the milieu, especially with groups to develop coping skills; continue current pharmacotherapy; will contact patient's chain of command to discuss discharge planning TIME SPENT: 15 minutes Vital Signs Vital Signs Date Time Temp Pulse Resp B/P (MAP) Pulse Ox O2 Delivery O2 Flow Rate FiO2 06/25/17 06:24 96.2 60 16 147/63 (91) Room Air 06/22/17 23:48 96 Current Medications Current Medications Acetaminophen (Tylenol Tab) 650 mg Q6HP PRN PO HEADACHE or DISCOMFORT; Start at 01:30; Stop 07/23/17 at 01:29 Al Hydrox/Mg Hydrox/Simethicone (Mylanta) 30 ml Q4HP PRN PO HEARTBURN/ INDIGESTION; Start 06/23/17 at 01:30; Stop 07/23/17 at 01:29 Home Med (Med Rec Complete!) ASDIRECTED XX ; Start 06/22/17 at 23:30; Stop at 23:30; Status DC Magnesium Hydroxide (Milk Of Magnesia) 30 ml DAILYPRN PRN PO CONSTIPATION; Start 06/23/17 at 01:30; Stop 07/23/17 at 01:29 Nicotine (Nicoderm Cq 21mg) 1 patch DAILY TD ; Start 06/23/17 at 09:00; Stop 07/23 at 08:59 Olanzapine (ZyPREXA) 5 mg Q4HP PRN PO AGITATION; Start 06/23/17 at 01:30; Stop 07/23/17 at 01:29 Trazodone HCl (Desyrel) 50 mg QHSP PRN PO INSOMNIA Last administered on 23:05; Start 06/23/17 at 01:30; Stop 07/23/17 at 01:29 Venlafaxine HCl (Effexor Xr) 75 mg DAILY PO Last administered on 06/25/17 08:40; Start 06/23/17 at 09:00; Stop 07/23/17 at 08:59 Allergies Coded Allergies: No Known Allergies (Unverified , 03/05/17) TEJAS SCHWARZ MD Jun 25, 2017 15:51
[2017-06-25 18:00] VITALS: BP 145/79
[2017-06-25] MEDS: traZODone 50 MG TAB PO PRN (23:34)
[2017-06-26 06:33] VITALS: BP 143/80
[2017-06-26] MEDS: NICOTINE 21MG/24HR 1 EA TRANSDERMAL TD SCH (08:29)
[2017-06-26] MEDS: VENLAFAXINE **XR** 75MG CAPSULE PO SCH (08:35)
[2017-06-26 18:00] VITALS: BP 148/70
[2017-06-27] MEDS: traZODone 50 MG TAB PO PRN ×2 (00:08→22:06)
[2017-06-27 06:43] VITALS: BP 110/76
[2017-06-27] MEDS: NICOTINE 21MG/24HR 1 EA TRANSDERMAL TD SCH (08:41)
[2017-06-27] MEDS: VENLAFAXINE **XR** 75MG CAPSULE PO SCH (09:01)
[2017-06-27 18:00] VITALS: BP 102/68
--- NOTE | 2017-06-27 20:48 | MHIPN ---
DATE: 06/26/2017 VITAL SIGNS: Temperature 97.0, pulse 59, respirations 16, blood pressure 143/80. CURRENT MEDICATIONS: - Effexor XR 75 mg every morning - trazodone 50 mg nightly as needed HISTORY OF PRESENT ILLNESS: This is a 22-year-old white male with a history of depression. The patient is isolating per staff, group attendance is poor. He states his depression is in the moderate range. His appetite is good. His concentration is fair. The patient reports sleeping well at night with his medication. He does report history of panic attacks when in times of stress and conflict. He does not get them on a routine basis, however. The patient was on the Effexor for about a month prior to admission. He is willing to increase the dosage. He reports that he is tolerating it well and has no side effects. MENTAL STATUS EXAMINATION: The patient is alert, oriented, and cooperative. Affect appears sad and subdued with some psychomotor retardation. Mood is moderately depressed. He denies being suicidal. Insight and judgment appear limited. The patient reports history of anxiety and possible panic attacks. No signs of cognitive deficits. DIAGNOSES: Adjustment disorder with mixed disturbance of emotions and conduct versus major depressive disorder. Alcohol use disorder. PLAN: Increase Effexor XR to 150 mg by mouth every morning. Encourage milieu therapy involvement.
[2017-06-28 06:53] VITALS: BP 137/66
--- NOTE | 2017-06-28 08:56 | MHIPN ---
DATE: 06/26/2017 VITAL SIGNS: Temperature 98.4, pulse 49, respirations 16, blood pressure 110/76. CURRENT MEDICATION: - Effexor XR 150 mg every morning - trazodone 50 mg at bedtime (hs) as needed HISTORY OF PRESENT ILLNESS: The patient got his first dose of the Effexor 150 mg this morning. He tolerated well. He had no gastrointestinal (GI) side effects. He reports his mood is somewhat better. No recent panic attacks. 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 He is looking forward to discharge. No other complaints. MENTAL STATUS EXAMINATION: Affect appears sad and sullen. Volunteers little. He reports his depression in the moderate range. No signs of psychosis. He is not hearing voices. No paranoia or thought disorder noted. He denies being in danger to himself or others. DIAGNOSIS: 1. Adjustment disorder with mixed disturbance of emotions and conduct. Rule out major depressive disorder. 2. Alcohol use disorder. 3. Unspecified personality disorder. PLAN: Continue present management.
[2017-06-28] MEDS: NICOTINE 21MG/24HR 1 EA TRANSDERMAL TD SCH (09:30)
[2017-06-28] MEDS: VENLAFAXINE **XR** 75MG CAPSULE PO SCH (09:31)
[2017-06-28] MEDS ORDERED: VENL75CA2 PO (10:19)
[2017-06-28] MEDS ORDERED: OLAN5TAB PO (10:19)
[2017-06-28] MEDS ORDERED: TRAZO50TA PO (10:19)
[2017-06-28] MEDS ORDERED: NICO21PAT TD (10:19)
--- NOTE | 2017-06-28 17:48 | MHDSPDOC ---
[facility] Discharge Summary Discharge Summary DATE OF ADMISSION: Jun 22, 2017 at 22:58 DATE OF DISCHARGE: Jun 28, 2017 at 11:40 DISCHARGE DIAGNOSES: Adjustment Disorder with mixed disturbance of emotions and conduct Alcohol Use Disorder, severe REASON FOR ADMISSION: As per initial H&P: "Patient is a 22-year-old male with known history of Major Depressive Disorder vs. Adjustment Disorder and possible diagnoses of ADHD and Autism Spectrum Disorder who presented to the ED via EMS after drinking while on duty and being chased by Police after he threatened to harm co-workers because they would not leave him alone. Patient has a history of alcohol abuse and underage drinking for which he was entered into the [facility] program at [place]. This was initially begun in February 2017 after he was admitted to [facility] for suicidal ideation and found to have been drinking heavily at that time. The patient states that since his discharge in February he has remained sober up until the past several days. He does not identify a trigger which caused him to start drinking but does state "I'm tired of people watching me all the time; they're trying to get me for something, they want me out." He admits to drinking a few beers prior to his job on the day of admission and leaving a bathroom after which he was cornered by several co-workers. He told them he would harm them if they tried to stop him and he ran off because of this continued wish to not deal with perceived examination. Patient states that this resulted in MPs being called on him and being escorted to [facility] for evaluation. Patient indicates that he is accepting of the idea that the may terminate his service after this latest event stating "they were going to do it anyways, just looking for an excuse." He feels that the worked well for him for the first year of service but in the past 6 months he has felt heavily scrutinized with all his actions. 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 He says that he initially joined the because he had no other options as his parents were not going to pay for his college. Now he plans on returning to his home town to live with friends while working a job to afford school. He is irritable and non-committal in many of his answers. Patient appears to not appreciate the reasons why he is currently in the hospital. When asked about suicidal intent at the time of the last event he shrugs and states "I don' t know. Maybe. Probably not." He answers in similar fashion when asked about his supposed diagnoses of ADHD and Asperger's but has no recollection of who first diagnosed these conditions for him." CONSULTANTS INVOLVED: none HOSPITAL COURSE: Patient was admitted to the hospital after he had been found drunk on duty and made threats to others who tried to confront him. The patient was resistant to treatment throughout his course of stay and engaged in a very limited fashion in daily interviews as well as within the milieu. Throughout his time the patient reported a sense of hopelessness regarding his placement within the and remained certain that he was to be discharged. His primary concern was to not be given a dishonorable discharge as he wished to be able to keep his benefits. Patient was taking 75mg Effexor on admission and was steadily titrated up to 150mg, he reported no side effects from this change but also denied any benefit. Patient stated that he was planning on continuing treatment with [facility] but felt that his situation would still be relatively the same upon return as he would still be on double duty and likely half pay. 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 He did admit that alcohol had caused many problems for him but continued to place primary blame on the 's response to his underage drinking. DISCHARGE ASSESSMENT: This is a 22 year old man with severe alcohol use disorder which has likely impacted his career. It is probable that development of his alcohol use has been as a coping response to his inability to adjust to life. Patient has had repeated difficulties dealing with command issues and had a reported increase in drinking since his enrollment. Despite patient's awareness of the problems behind his alcohol use he refuses the need for treatment stating "I wouldn't be in trouble if not for the ". Patient has limited insight into his current situation. Given his demonstrated poor coping skills he has a small functional reserve and remains at an increased risk of worsening psychiatric distress. However, patient has repeatedly denied suicidal ideation during his admission despite his continued hopelessness. At this time he does not meet criteria for a continued inpatient admission and will need to continue to seek treatment in the outpatient setting. MENTAL STATUS EXAMINATION ON DISCHARGE: Patient is a 22-year old male, who is dressed in [facility]; he appears the stated age and has good hygiene Speech is fluent, with a regular rate, rhythm, and volume Thought processes including: logical, goal-oriented Thought content: no SI/HI; patient has some magical thinking in regards to his sense of agency Abstract reasoning, and computation: concrete Description of associations: intact Description of abnormal or psychotic thoughts: denies auditory or visual hallucinations, does not appear internally preoccupied Judgment: poor-fair Insight: poor Orientation to x3 Recent and remote memory: intact Attention span and concentration: intact Mood: patient shrugs when asked about his mood; dysphoric affect, restricted range, congruent to thought content MEDICATIONS ON DISCHARGE: Effexor 150mg daily Trazodone 50mg nightly PRN for sleep PLAN/FOLLOWUP ARRANGEMENTS: Will follow-up with [facility] for continued therapy and medication management The amount of time spent in the coordination of care for this patient was approximately 30 minutes. Vital Signs/I&Os Vital Signs Date Time Temp Pulse Resp B/P (MAP) Pulse Ox O2 Delivery O2 Flow Rate FiO2 06/28/17 06:53 98.2 58 16 137/66 (89) Room Air 06/22/17 23:48 96 Medications Scheduled Nicotine (Nicotine Transdermal Syst) 21 Mg/24 Hr Dis, 1 PATCH TD DAILY for SMOKING CESSATION, #7 Venlafaxine HCl (Venlafaxine HCl ER) 75 Mg Cap, 150 MG PO DAILY for MOOD, #14 Scheduled PRN Olanzapine (Olanzapine) 5 Mg Tab, 5 MG PO Q4HP PRN for AGITATION, #21 Trazodone HCl (Trazodone HCl) 50 Mg Tab, 50 MG PO QHSP PRN for INSOMNIA, #7 Allergies Coded Allergies: No Known Allergies (Unverified , 03/05/17) TEJAS SCHWARZ MD Jun 28, 2017 17:48
== END 2017-06-28 11:40 | disposition home or self-care (01) | DRG 882 ==
LOC: M ED 18:09 → M ED INP 22:58 → M PSY 06-23 00:06
PROVIDERS: ADMIT Psychiatry & Neurology Psychiatry; ATTEND Psychiatry & Neurology Psychiatry
DX: F43.25 Adjustment disorder with mixed disturbance of emotions and conduct (principal); Z79.899 Other long term (current) drug therapy; G47.00 Insomnia, unspecified; F17.200 Nicotine dependence, unspecified, uncomplicated

== ENCOUNTER 2017-07-08 18:02 | Inpatient (IN) | payer OTHER ==
[~2017-07-08] VITALS: Ht 182.9 cm; Wt 84.1 kg
[~2017-07-08 18:02] MED LIST changes: +EFFE75CA75 PO; +LUNE2TAB23 PO; +NICO21PAT TD; +OLAN5TAB PO; +TRAZO50TA PO; +VENL75CA2 PO
[2017-07-08 18:38] LABS: MEAN CORPUSCULAR HEMOGLOBIN 32.7 pg (27.0-33.0); MEAN CORPUSCULAR VOLUME 88.8 fl (80.0-96.0); RED CELL DISTRIBUTION WIDTH 12.2 % (11.5-14.5); WHITE BLOOD COUNT 6.4 K/mm3 (4.0-10.0)
[2017-07-08 18:44] LABS: MEAN CORPUSCULAR HGB CONC 36.8 g/dl (32.0-36.5)
[2017-07-08 19:01] LABS: METHADONE URINE NEGATIVE (NEGATIVE)
[2017-07-08 19:09] LABS: ALBUMIN/GLOBULIN RATIO 1.11 (1.00-1.93); ALKALINE PHOSPHATASE 83 U/L (45-117); ALT/SGPT 26 U/L (12-78); ANION GAP 10 MEQ/L (8-16); AST/SGOT 21 U/L (15-37); BILIRUBIN,DIRECT 0.2 MG/DL (0.0-0.2); BLOOD UREA NITROGEN 10 MG/DL (7-18); CALCIUM LEVEL 8.5 MG/DL (8.5-10.1); CARBON DIOXIDE LEVEL 27 MEQ/L (21-32); CHLORIDE LEVEL 104 MEQ/L (98-107); CREATININE FOR GFR 1.04 MG/DL (0.70-1.30); GLOMERULAR FILTRATION RATE > 60.0 (>60); GLUCOSE, FASTING 86 MG/DL (70-105); POTASSIUM SERUM 3.6 MEQ/L (3.5-5.1); SODIUM LEVEL 141 MEQ/L (136-145); TOTAL PROTEIN 7.6 GM/DL (6.4-8.2)
[2017-07-09] MEDS ORDERED: MAALOX 30 ML SUSP *UDC PO PRN (00:15)
[2017-07-09] MEDS ORDERED: ACETAMINOPHEN TAB 650MG DOSE (2X325MG) PO PRN (00:15)
[2017-07-09] MEDS ORDERED: MOM 30ML SUSPENSION UDC PO PRN (00:15)
[2017-07-09] MEDS ORDERED: VENL150C43 PO (00:42)
[2017-07-09] MEDS ORDERED: TRAZ50TA11 PO (00:42)
[2017-07-09 00:59] VITALS: BP 144/84
[2017-07-09 06:31] VITALS: BP 108/88
--- NOTE | 2017-07-09 08:48 | ECGEPIP ---
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
[2017-07-09] MEDS ORDERED: VENLAFAXINE **XR** 75MG CAPSULE PO SCH (09:00)
[2017-07-09] MEDS ORDERED: LORazepam 2 MG TAB PO PRN (09:30)
--- NOTE | 2017-07-09 09:36 | HPEPDOC ---
Medical History and Physical Date of Admission Jul 09, 2017 at 00:12 History and Physical PCP: [facility] ATTENDING: Dr. Javon Gar HPI: 22yoM admitted to [facility] for unspecified depressive disorder, being medically examined today. No apparent medical complaints today. Patient is declining to participate with history and physical exam. History is taken from the chart. The patient was brought to the emergency department 07/08/17 after being found in a car with alcohol and possible ingestion of flu medication. The patient was medically stabilized in the emergency department, poison control was consulted. 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 History of EtOH use. Illicit Drugs: Denies IV Drug Use: Denies Tattoos done unprofessionally: Denies FAMHX: Mother: Alive, well Father: Alive, well Siblings: One sister Alive, well Children: None Unexpected deaths due to medical reasons: None. ROS: Patient declines to provide history. PE: Patient declines physical examination. EK07/08/17 SINUS RHYTHM EARLY REPOLARIZATION SIMILAR 03/06/17 A&P: 22yoM admitted to [facility] for unspecified depressive disorder. 1. Psych. Plan per Psychiatry. EKG on file. 2. Nicotine dependence. Patch available. 3. Follow up with PCP on discharge. 4. Substance use. Per psychiatry. Continue multivitamin, folic acid, thiamine supplements. 5. Staff member Andres present for attempting exam. Vital Signs Vital Signs Date Time Temp Pulse Resp B/P (MAP) Pulse Ox O2 Delivery O2 Flow Rate FiO2 07/09/17 06:31 98.8 63 18 108/88 (95) 07/09/17 00:59 Room Air 07/09/17 00:46 94 Laboratory Data Labs 24H Laboratory Tests 2 07/08/17 18:22: Anion Gap 10, Glomerular Filtration Rate > 60.0, Calcium Level 8.5, Aspartate Amino Transf (AST/SGOT) 21, Alanine Aminotransferase (ALT/SGPT) 26, Alkaline Phosphatase 83, Total Bilirubin 1.0, Direct Bilirubin 0.2, Total Creatine Kinase 176, Total Protein 7.6, Albumin 4.0, Albumin/Globulin Ratio 1.11, Thyroid Stimulating Hormone (TSH) 2.560, Salicylates Level < 1.7L, Urine Amphetamines Screen NEGATIVE, Urine Benzodiazepines Screen NEGATIVE, Urine Opiates Screen NEGATIVE, Urine Methadone Screen NEGATIVE, Acetaminophen Level < 2.0L, Urine Barbiturates Screen NEGATIVE, Urine Phencyclidine Screen NEGATIVE, Urine Cocaine Metabolite Screen NEGATIVE, Urine Cannabinoids Screen NEGATIVE, Ethyl Alcohol Level 0.164H CBC/BMP Laboratory Tests 07/08/17 18:22 Red Blood Count 5.19, Mean Corpuscular Volume 88.8, Mean Corpuscular Hemoglobin 32.7, Mean Corpuscular Hemoglobin Concent 36.8 H, Red Cell Distribution Width 12.2 Home Medications Scheduled Venlafaxine Hydrochloride (Venlafaxine HCl ER) 150 Mg Cap, 150 MG PO DAILY Scheduled PRN Trazodone HCl (Trazodone HCl) 50 Mg Tab, 50 MG PO QHS PRN for INSOMNIA Allergies Coded Allergies: No Known Allergies (Unverified , 03/05/17) Nanci Jordan Jul 09, 2017 09:36
[2017-07-09] MEDS: FOLIC ACID 1 MG TAB PO SCH (09:51)
[2017-07-09] MEDS: THIAMINE 100 MG TAB PO SCH ×2 (09:51→21:00)
[2017-07-09] MEDS: MULTIVITAMINS/MINERALS THERAP 1 TAB PO SCH (09:51)
[2017-07-09 12:00] VITALS: BP 144/83
--- NOTE | 2017-07-09 12:38 | REP ---
Left hand four views : There is no fracture or dislocation. Mineralization and joint spaces are normal. There are no calcifications or foreign bodies. Impression: Negative left hand . Signed by Thor Mendez MD 07/09/2017 12:29 P
--- NOTE | 2017-07-09 12:38 | REP ---
Left wrist four views : There is no fracture or dislocation. Mineralization and joint spaces are normal. There are no calcifications or foreign bodies. Impression: Negative left wrist . Signed by Thor Mendez MD 07/09/2017 12:29 P
--- NOTE | 2017-07-09 15:13 | MHHPEPDOC ---
[facility] History & Physical History and Physical DATE OF ADMISSION: Jul 09, 2017 at 00:12 LEGAL STATUS AT ADMISSION: 9.39 CHIEF COMPLAINT: Patient was brought from [facility] to the ED after he was found intoxicated with alcohol inside the car in a parking lot inside of [facility]. He also had called medication with him. He told the people that found him that he wanted to . HISTORY OF THE PRESENT ILLNESS: Patient is a 22-year-old male, who has had previous hospitalizations. [facility] and at that time he was found to be depressed, angry and anxious. Patient has a history of alcohol abuse and triple C's abuse. He is originally from [place] and he has no family support in the area. Last time he didn't call his relatives to let them know he was hospitalized because he didn't want to disappoint them once again. He has expressed feeling very unhappy with the , he says it's not what he expected. At that time he expressed frustration and extreme tiredness because he was working approximately 16 hours/day ( as a punishment). Patient knows he has a problem with alcohol consumption but he doesn't want to do anything about it, he feels antidepressants don't help him but he has been told this is as he drinks alcohol, because this one counteracts the antidepressant effects of his medications. During that time he said he will go back to [place], get a job and live with a friend because he didn't want to go back and live with his family. 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 He says he feels very depressed, he is disappointed of himself, although what he wants is to hear that he will get an honorable discharge. He states he already knows his being chaptered, he will be be only 1 or 2 more months within the . Last night he was found drinking inside of a car where he was found to have cold medicine 2. He is afraid this is going to impact discharge, and he fears to have a dishonorable discharge. PSYCHIATRIC REVIEW OF SYSTEMS: Affective: Depressed, sad, anxious, frustrated, angry Anxiety: Very high. Trauma: Denies Psychosis: Denies. Personally: Needs further assessment. PAST PSYCHIATRIC HISTORY: Prior Psychiatric Disorder: Major Depressive Disorder; Adjustment Disorder; this is 3rd admission to [facility] since February 2017 Outpatient Treatment: [facility] Suicidal/Self injurious: suicidal ideations in the past; no attempts Psychotropic Medication History: Adderall in the past for ADHD; Celexa and Venlafaxine for MDD; previous trials of Wellbutrin, Seroquel, and trazodone ALLERGIES: Please see below. FAMILY PSYCHIATRIC HISTORY: Denies family psychiatric history or history of suicides/attempts SOCIAL HISTORY: Reports that he had a decent childhood but states he does not talk to his family anymore because "I feel like they've heard about me getting in trouble enough." He completed high school with average grades and joined the to be able to pay for college. He is currently serving at [employer] and has no family in the area SUBSTANCE ABUSE HISTORY: Prior records indicate that he began drinking alcohol as early as 15 and has continued since then; he was found to be drinking underage while on the [employer] to the point where he was regularly impaired at work; he denies the use of marijuana or other illicit drugs PAST MEDICAL/SURGICAL HISTORY: no medical/surgical history VITAL SIGNS: See below MENTAL STATUS EXAMINATION: General appearance: Patient is a 22-year old male, who is alert, oriented 3, dressed in hospital clothes, with poor eye contact, looking sad. Speech: Fluid and spontaneous. Thought processes: Intact. Thought content: Coherent. Abstract reasoning and computation: Fair. Description of associations: Good. Description of abnormal or psychotic thoughts: Denies homicidal and suicidal ideation, denies auditory and visual hallucinations, denies thought delusions. Judgment: Poor. Insight: Poor. Orientation: Oriented 3. Recent and remote memory: Intact. Attention span and concentration: Fair. Fund of knowledge: Fair. Mood: "I'm anxious." Affect: Congruent with mood, very sad, depressed. DIAGNOSES: 1. Major depressive disorder, recurrent, severe secondary to alcohol use disorder 2. Alcohol use disorder 2. Possible personality disorder, cluster B (borderline and antisocial) ASSESSMENT: Patient is very depressed, for the first time in several hospitalizations, he is allowing me to see him without his defenses. he is dissapointed of himself, he knows he has taken the wrong decisions. His judgement and insight continue to be impaired. PROBLEM LIST: 1. Substance abuse 2. Depression. 3. Anxiety 4. Risk for suicide 5. Risk for self-harm 6. Ineffective coping 7 poor impulse control INITIAL TREATMENT PLAN: 1. Patient was admitted on a 9 2. Complete history was obtained. 3. With patients permission, family will be contacted and database will be expanded. 4. Patients medication regimen will be reviewed and changed accordingly. 5. Patient will be provided with protected environment. 6. Patient will be treated with individual, group, and milieu therapies. 7. Patient will receive supportive psych-education. 8. Discharge planning will commence immediately. 9. Outpatient follow-up treatment will be strongly recommended. 10. The initial treatment plan will focus initially on: * Depression. * Risk for suicide. * Substance abuse. ESTIMATED LENGTH OF STAY: 7-10 DAYS. TIME SPENT COUNSELING AND COORDINATING INITIAL CARE: 60 minutes. Laboratory Data [facility] Labs Laboratory Tests 2 07/08/17 18:22: Anion Gap 10, Glomerular Filtration Rate > 60.0, Calcium Level 8.5, Aspartate Amino Transf (AST/SGOT) 21, Alanine Aminotransferase (ALT/SGPT) 26, Alkaline Phosphatase 83, Total Bilirubin 1.0, Direct Bilirubin 0.2, Total Creatine Kinase 176, Total Protein 7.6, Albumin 4.0, Albumin/Globulin Ratio 1.11, Thyroid Stimulating Hormone (TSH) 2.560, Salicylates Level < 1.7L, Urine Amphetamines Screen NEGATIVE, Urine Benzodiazepines Screen NEGATIVE, Urine Opiates Screen NEGATIVE, Urine Methadone Screen NEGATIVE, Acetaminophen Level < 2.0L, Urine Barbiturates Screen NEGATIVE, Urine Phencyclidine Screen NEGATIVE, Urine Cocaine Metabolite Screen NEGATIVE, Urine Cannabinoids Screen NEGATIVE, Ethyl Alcohol Level 0.164H CBC/BMP Laboratory Tests 07/08/17 18:22 Red Blood Count 5.19, Mean Corpuscular Volume 88.8, Mean Corpuscular Hemoglobin 32.7, Mean Corpuscular Hemoglobin Concent 36.8 H, Red Cell Distribution Width 12.2 Medications Scheduled Risperidone (Risperdal) 1 Mg Tab, 1 MG PO BID for MOOD/IMPULSE CONTROL Sertraline Hcl (Sertraline HCl) 50 Mg Tab, 50 MG PO DAILY for DEPRESSION Scheduled PRN Trazodone HCl (Trazodone HCl) 50 Mg Tab, 50 MG PO QHS PRN for INSOMNIA, ( Reported) Allergies Coded Allergies: No Known Allergies (Unverified , 03/05/17) GILBERTO PATTON MD Jul 09, 2017 15:13
[2017-07-09 18:00] VITALS: BP 160/84
[2017-07-09 21:00] VITALS: BP 133/82
[2017-07-09] MEDS: risperiDONE 0.5 MG TAB PO SCH (21:00)
[2017-07-10 06:54] VITALS: BP 124/92
[2017-07-10] MEDS ORDERED: CitaloPRAM (CeleXA) 20 MG TAB PO SCH (09:00)
[2017-07-10] MEDS: SERTRALINE HCL 50 MG TAB PO SCH (09:43)
[2017-07-10] MEDS: FOLIC ACID 1 MG TAB PO SCH (09:43)
[2017-07-10] MEDS: MULTIVITAMINS/MINERALS THERAP 1 TAB PO SCH (09:43)
[2017-07-10] MEDS: THIAMINE 100 MG TAB PO SCH ×2 (09:43→21:10)
[2017-07-10] MEDS: risperiDONE 0.5 MG TAB PO SCH ×2 (09:43→21:10)
[2017-07-10 12:00] VITALS: BP 154/67
[2017-07-10 18:00] VITALS: BP 110/68
[2017-07-10] MEDS: OLANZapine 5 MG TAB PO PRN (18:24)
[2017-07-10] MEDS: traZODone 50 MG TAB PO PRN (21:10)
[2017-07-11 06:55] VITALS: BP 129/60
[2017-07-11] MEDS: THIAMINE 100 MG TAB PO SCH ×2 (09:19→21:58)
[2017-07-11] MEDS: SERTRALINE HCL 50 MG TAB PO SCH (09:19)
[2017-07-11] MEDS: FOLIC ACID 1 MG TAB PO SCH (09:19)
[2017-07-11] MEDS: risperiDONE 0.5 MG TAB PO SCH ×2 (09:19→21:58)
[2017-07-11] MEDS: MULTIVITAMINS/MINERALS THERAP 1 TAB PO SCH (09:19)
[2017-07-11 18:00] VITALS: BP 144/74
[2017-07-11] MEDS: traZODone 50 MG TAB PO PRN (21:58)
[2017-07-12 06:29] VITALS: BP 110/78
[2017-07-12 07:50] VITALS: BP 110/78
[2017-07-12] MEDS: SERTRALINE HCL 50 MG TAB PO SCH (09:17)
[2017-07-12] MEDS: FOLIC ACID 1 MG TAB PO SCH (09:17)
[2017-07-12] MEDS: MULTIVITAMINS/MINERALS THERAP 1 TAB PO SCH (09:17)
--- NOTE | 2017-07-12 09:45 | MHIPN ---
DATE: 07/10/2017 CHIEF COMPLAINT: Says feels good. SUBJECTIVE: Seen for followup. Indicates feels good, and that feels okay, later suggests a bit better than when coming in, later still there is not much of a difference. Says eager to get out before the 25th, when he has eye surgery locally. Says sleeps well. Appetite is good. MENTAL STATUS EXAMINATION: He is neat. Cooperative though somewhat superficially so, possibly a bit guarded, at times appears a bit disinterested. Affect is restricted, somewhat incongruent with mood. He is coherent. Denies any thoughts of harming himself or anyone else. No evidence of any psychosis. Cognition grossly intact. Judgment is questionable as is insight. ASSESSMENT: Major depressive disorder. Alcohol use disorder. Consider depressive disorder due to alcohol use. PLAN: Continue current care and observations, I would suggest looking at obtaining collateral information. Encouraged participation in activities on the unit. VITAL SIGNS: Blood pressure 154/67, pulse 88, temperature 98.2.
[2017-07-12] MEDS: risperiDONE 1 MG TAB PO SCH ×2 (09:53→20:47)
[2017-07-12] MEDS: OLANZapine 5 MG TAB PO PRN (14:20)
[2017-07-12 18:00] VITALS: BP 160/78
[2017-07-12] MEDS: traZODone 50 MG TAB PO PRN (20:47)
--- NOTE | 2017-07-13 06:09 | MHIPN ---
DATE: 07/11/2017 CHIEF COMPLAINT: Feels okay. SUBJECTIVE: Seen for followup. Indicates feels okay, did not go into details, but suggests had a good night, and that his mood has been good. MENTAL STATUS EXAMINATION: Neat, cooperative. Appears somewhat disinterested, but he is coherent. There is no agitation, no psychomotor retardation. Affect is restricted in range. Denies any suicidal thoughts or intents. No homicidal ideas or intents. Currently no evidence of any psychosis. Cognition grossly intact. Judgment questionable, as is insight. ASSESSMENT: Major depressive disorder. PLAN: Continue current care and observation. He is to be encouraged to participate in activities in the unit. He is to see his assigned psychiatrist tomorrow. VITAL SIGNS: Blood pressure 129/60, pulse 65, temperature 98.1. MTDD
[2017-07-13 07:44] VITALS: BP 139/65
[2017-07-13] MEDS: SERTRALINE HCL 50 MG TAB PO SCH (08:57)
[2017-07-13] MEDS: risperiDONE 1 MG TAB PO SCH ×2 (08:57→21:15)
[2017-07-13] MEDS: FOLIC ACID 1 MG TAB PO SCH (08:57)
[2017-07-13] MEDS: MULTIVITAMINS/MINERALS THERAP 1 TAB PO SCH (08:57)
[2017-07-13 10:53] VITALS: BP 139/65
--- NOTE | 2017-07-13 16:22 | MHIPN ---
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 2. Alcohol use disorder. 3. Rule out major depressive disorder secondary to alcohol abuse. SUBJECTIVE: The patient reports he is feeling better, he is not depressed, he is not anxious. He says he has stopped worrying about being discharged and having a dishonorable discharge because he received a visit from his mapping analyst yesterday and he told him things were not that bad. He says he really does not care if he is discharged from the , he is not bothering about it. OBJECTIVE: Patient is alert and oriented times three, cooperative, not depressed, not anxious, denying suicidal and homicidal ideation, denying psychosis. His insight and judgment are poor, his mood is euthymic, his affect is congruent to mood. His memory is intact. PLAN: Will continue on the same medications, will encourage him to attend groups, and will consider discharge around if he continues to do well. Will followup.
[2017-07-13 18:00] VITALS: BP 146/90
[2017-07-13] MEDS: OLANZapine 5 MG TAB PO PRN (18:34)
[2017-07-13 20:34] VITALS: BP 146/90
[2017-07-13] MEDS: traZODone 50 MG TAB PO PRN (21:15)
[2017-07-14 06:57] VITALS: BP 118/67
[2017-07-14] MEDS: risperiDONE 1 MG TAB PO SCH (08:39)
[2017-07-14] MEDS: MULTIVITAMINS/MINERALS THERAP 1 TAB PO SCH (08:39)
[2017-07-14] MEDS: SERTRALINE HCL 50 MG TAB PO SCH (08:39)
[2017-07-14] MEDS: FOLIC ACID 1 MG TAB PO SCH (08:39)
[2017-07-14] MEDS: OLANZapine 5 MG TAB PO PRN (11:00)
[2017-07-14] MEDS ORDERED: SERT50TA PO (11:58)
[2017-07-14] MEDS ORDERED: RISP1TAB42 PO (11:58)
--- NOTE | 2017-07-14 15:51 | MHIPN ---
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 2. Alcohol use disorder. 3. Rule out major depressive disorder secondary to alcohol use. SUBJECTIVE: Patient continues to report feeling well, not worrying about his discharge. He only has one month left within the [employer]. business banking manager spoke with [employer] who told her patient will be given the bad news tomorrow that he is being discharged from the and is not going to be an honorable discharge. Beside, patient will have six charges against him, and they have requested director case management to hold the patient for a longer period of time, because he might not take this news very well. OBJECTIVE: Patient is alert, cooperative, oriented times three with euthymic mood and congruent affect. His speech is spontaneous. His thought is coherent. His thought process is intact. He is not responding to internal stimuli. He is not psychotic. He denies suicidal or homicidal ideation. His insight and judgment are limited. His impulse control has been fine until now. PLAN: I agreed with patient to discharge him tomorrow, but after [employer] communicated to director case management that patient will be discharged from the [employer], and that he is has 6 charges against him. After he meets with them, will meet with him again to re assess for safety upon discharge. JEFFREY
--- NOTE | 2017-07-14 20:49 | MHDSPDOC ---
[facility] Discharge Summary Discharge Summary cDATE OF ADMISSION: Jul 09, 2017 at 00:12 DATE OF DISCHARGE: Jul 14, 2017 at 12:25 DISCHARGE DIAGNOSES: 1. Major Depressive Disorder secondary to alcohol use 2. Alcohol use disorder REASON FOR ADMISSION:CHIEF COMPLAINT: Patient was brought from [place] to the ED after he was found intoxicated with alcohol inside the car in a parking lot inside of [place]. He also had called medication with him. He told the people that found him that he wanted to . HISTORY OF THE PRESENT ILLNESS: Patient is a 22-year-old male, who has had previous hospitalizations. He was recently discharged from the [facility] and at that time he was found to be depressed, angry and anxious. Patient has a history of alcohol abuse and triple C's abuse. He is originally from [place] and he has no family support in the area. Last time he didn't call his relatives to let them know he was hospitalized because he didn't want to disappoint them once again. He has expressed feeling very unhappy with the , he says it's not what he expected. At that time he expressed frustration and extreme tiredness because he was working approximately 16 hours/day ( as a punishment). Patient knows he has a problem with alcohol consumption but he doesn't want to do anything about it, he feels antidepressants don't help him but he has been told this is as he drinks alcohol, because this one counteracts the antidepressant effects of his medications. During that time he said he will go back to [place], get a job and live with a friend because he didn't want to go back and live with his family. 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 He says he feels very depressed, he is disappointed of himself, although what he wants is to hear that he will get an honorable discharge. He states he already knows his being chaptered, he will be be only 1 or 2 more months within the . Last night he was found drinking inside of a car where he was found to have cold medicine 2. He is afraid this is going to impact discharge, and he fears to have a dishonorable discharge. 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 He said he was O.K., he had received his parts expediter's visit on Wednesday and Wednesday and had told him his situation "was not that bad". Then, he said he only had one or two months left in the [employer], he didn't care. Today he received the visit of his TARYN and was told he is being discharged from the [employer], is not an honorable discharge but is not dishonorable either. he was told he would be facing 6 charges. After he met with them, he insisted in being discharged. He said he wanted to leave, he was O.K., denied suicidal or homicidal thoughts, expressed he would not get in trouble, he didn't want more problems. he said if he kept away from alcohol, he was going to be O.K. He said if he felt angry, if he became irritable, he would retreat to his room and would stay away from whoever he would be angry at. Patient's insight and judgement cntinue to be limited. HOSPITAL COURSE: As above DISCHARGE ASSESSMENT: Patient was stable upon discharge, he was not in danger to self or others, he was not suicidal, not homicidal and not psychotic. MENTAL STATUS EXAMINATION ON DISCHARGE: Patient is a 22-year old male, who is alert, cooperative, with poor eye contact. Speech is Spontaneous and fluid. Language skills are Fair. Thought processes including: Intact. Thought content: Coherent. Abstract reasoning, and computation: Fair. Description of associations: Good. Description of abnormal or psychotic thoughts: Denies auditory and visual hallucinations, denies thought delusions, denies suicidal or homicidal thoughts. Judgment: Fair Insight: Fair. Orientation to Oriented x 3. Recent and remote memory: Intact. Attention span and concentration: Fair Language: Normal. Fund of knowledge: Fair. Mood: Slightly anxious Affect: Congruent to mood MEDICATIONS ON DISCHARGE: - Risperidone 1 mg PO BID for impulse control/MOOD. - TRAZODONE 50 MGS po qhs for INSOMNIA. - Zoloft 50 mgs PO QD for depression. PLAN/FOLLOWUP ARRANGEMENTS: Pt was discharged to his [facility]. He will follow-up with [facility]. See DC summary for details. The amount of time spent in the coordination of care for this patient was approximately 45 minutes. Vital Signs/I&Os Vital Signs Date Time Temp Pulse Resp B/P (MAP) Pulse Ox O2 Delivery O2 Flow Rate FiO2 07/14/17 06:57 98.0 101 16 118/67 (84) Room Air 07/09/17 00:46 94 Medications Scheduled Risperidone (Risperdal) 1 Mg Tab, 1 MG PO BID for MOOD/IMPULSE CONTROL, #14 Sertraline Hcl (Sertraline HCl) 50 Mg Tab, 50 MG PO DAILY for DEPRESSION, #7 Scheduled PRN Trazodone HCl (Trazodone HCl) 50 Mg Tab, 50 MG PO QHS PRN for INSOMNIA, ( Reported) Allergies Coded Allergies: No Known Allergies (Unverified , 03/05/17) GILBERTO PATTON MD Jul 14, 2017 20:49
== END 2017-07-14 12:25 | disposition home or self-care (01) | DRG 881 ==
LOC: M ED 18:02 → M ED INP 07-09 00:12 → M PSY 07-09 00:56
PROVIDERS: ADMIT Psychiatry & Neurology Psychiatry; ATTEND Psychiatry & Neurology Psychiatry
DX: F32.9 Major depressive disorder, single episode, unspecified (principal); F10.10 Alcohol abuse, uncomplicated; G47.00 Insomnia, unspecified; F17.200 Nicotine dependence, unspecified, uncomplicated; Z79.899 Other long term (current) drug therapy